=== PATIENT | male | born 1945 | race Caucasian/White ===

== ENCOUNTER 2023-01-28 09:46 | Outpatient (AMB) | payer MEDICARE, SELFPAY ==
--- NOTE | 2023-01-28 10:16 | MHC.PC.OV ---
Vital Signs 01/28/23 10:18 Height 5 ft 8 in Weight 221 lb BMI 33.6 BP 118/62 Blood Pressure Location Rt brachial Position Sitting Pulse 70 Pulse Source Pulse Oximeter Pulse Oximetry (%) 95 Oxygen Delivery Method Room Air Intake Visit Reasons: Est. Care/ Requesting PE Intake Note: Pt is here today as a new patient to est care/ PE Allergies Penicillins Allergy (Severe, Verified 01/28/23 10:58) Anaphylaxis metformin Adverse Reaction (Verified 01/28/23 10:52) Diarrhea Medication List - Last Reconciled 01/29/23 by Rosa Elena Brown MD allopurinol 100 mg PO DAILY aspirin (Adult Low Dose Aspirin) 81 mg PO DAILY atorvastatin 40 mg PO DAILY dapagliflozin propanediol (Farxiga) 10 mg PO DAILY levothyroxine (Synthroid) 150 mcg PO DAILY losartan-hydrochlorothiazide 100-25 mg 1 tab PO DAILY metoprolol succinate ER 25 mg PO DAILY [[employer] Krill oil PO] pioglitazone 30 mg PO DAILY potassium citrate ER PO sitagliptin phosphate (Januvia) 50 mg PO DAILY Tobacco use date assessed: 01/28/23 Fall risk assessment: No Falls in past year Last assessed Fall Risk: 01/28/23 Dental Screening Dental Screen Date: 01/28/23 Did you have a dental visit in the last 12 months?: Yes Did you have a dental problem in the last 6 months where you did not have access to dental care?: No Was dental information given to patient?: Patient has dentist HPI Est. 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 He had recent fasting labs done 01/14/2023 at [facility] which showed total cholesterol 106, triglycerides 217, HDL 23 and LDL 40, electrolytes and renal function done 12/24/2022 were within normal limits except for decreased GFR at 42, and normal vitamin-D level. Hemoglobin A1c today is 6.3%. He states that he has been feeling well overall with no complaints. [facility] Medical History (Updated 01/28/23 @ 11:14 by Rosa Elena Brown MD) Acquired hypothyroidism Aortic stenosis Chronic kidney disease, stage 3 Diabetic nephropathy Essential hypertension History of non-ST elevation myocardial infarction (NSTEMI) Hypercholesterolemia Kidney stone on right side Obstructive sleep apnea on CPAP Type 2 diabetes mellitus without complication, without long-term current use of insulin Surgical History (Updated 01/28/23 @ 10:57 by Rosa Elena Brown MD) S/P excision of lipoma Social History Housing: House Patient Tobacco Use Status: Former Tobacco user e-Cigarette/Vaping Use: Never Used service: Yes Current occupational status: employed Cognitive needs: No Hearing needs: Yes Vision needs: Yes Questionnaire PHQ-9 Over the last 2 weeks, how often have you been bothered by any of the following problems? 1. Little interest or pleasure in doing things: not at all 2. Feeling down, depressed, or hopeless: not at all 3. Trouble falling or staying asleep, or sleeping too much: not at all 4. Feeling tired or having little energy: not at all 5. Poor appetite or overeating: not at all 6. Feeling bad about yourself - or that you are a failure or have let yourself or your family down: not at all 7. Trouble concentrating on things, such as reading the newspaper or watching television: not at all 8. Moving or speaking so slowly that other people could have noticed. Or the opposite - being so fidgety or restless that you have been moving around a lot more than usual: not at all 9. Thoughts that you would be better off or of hurting yourself in some way: not at all Total score: 0 Depression Screening Interpretation: Negative 25047 - PHQ-9 Billing: Yes Source: Developed by Drs. Odell Hawkins, Pretty Mackenzie, Chris Bernal and colleagues, with an educational jp from [employer]. Thrive Questionnaire Date Thrive assessed: 01/28/23 I am a: Patient What is your living situation today?: I have a steady place to live Within the past 12 months, did the food you bought not last and you didn't have the money to get more?: Never true Within the past 12 months, did you worry whether your food would run out before you got money to buy more?: Never true Do you have trouble paying for medicines?: No Do you have trouble getting transportation to medical appointments?: No Do you have trouble paying your heating and electricity bill?: No Do you have trouble taking care of your child, family member or friend?: No Do you have trouble with day-to-day activities such as bathing, preparing meals, shopping, managing finances, etc.?: No Are you currently unemployed and looking for a job?: No Are you interested in more education?: No AUDIT C Alcohol Use Questionnaire (AUDIT-C) 1. How often do you have a drink containing alcohol?: Never Total Score: 0 KAY-7 AMB Questionnaire KAY-7 Date KAY - 7 assessed: 01/28/23 Feeling nervous, anxious, or on edge: 0 = Not at all Not being able to stop or control worryin = Not at all Worrying too much about different things: 0 = Not at all Trouble relaxin = Not at all Being so restless that it is hard to sit still: 0 = Not at all Becoming easily annoyed or irritable: 0 = Not at all Feeling afraid as if something awful might happen: 0 = Not at all Total KAY-7 score (0-4 normal; 5-9 mild; 10-14 moderate; 15-21 severe): 0 Source: Developed by Drs. Odell Hawkins, Pretty Mackenzie, Chris Bernal and colleagues, with an educational jp from [employer]. KAY-7 Assessment Billing KAY-7 Assessment Tool: KAY-7 Assessment 40368 Review of Systems Const Reports no additional complaints Eyes Details: Sees Dr. Leslie for his diabetes retinopathy exam, up-to-date with his yearly exam, no retinopathy seen per patient Reports no additional complaints ENT Details: Gets dental prophylaxis every 6 months in [place] Reports no additional complaints Card Denies chest pain, Denies chest pain with activity, Denies rapid heart rate, Denies irregular heart rhythm, Denies lightheadedness and Denies dyspnea Resp Denies cough and Denies dyspnea GI Reports no additional complaints Reports no additional complaints Musc Reports no additional complaints Skin/Breast Denies lesions and Denies rash Neuro Reports no additional complaints Psych Reports no additional complaints Endo Reports no additional complaints Andrew/Lymph Reports no additional complaints Aller/Immun Reports no additional complaints Physical exam (Primary Care) Vital Signs: Last Vital Signs Pulse 70 01/28/23 10:18 BP 118/62 01/28/23 10:18 Pulse Ox 95 01/28/23 10:18 Oxygen Delivery Method Room Air 01/28/23 10:18 BMI result Body Mass Index 33.6 BMI Assessment/Plan discussion: High BMI High, discussed plan: weight reduction, dietary and physical activity Tobacco/Smoking Status: Tobacco use Status Tobacco use date assessed 01/28/23 01/28/23 10:27 Patient Tobacco Use Status Former Tobacco user 01/28/23 10:27 e-Cigarette/Vaping Use Never Used 01/28/23 10:27 PHQ-9: PHQ-9 Score PHQ-9: Total score 0 01/28/23 11:25 Depression Screening Interpretation: Negative Thrive Assessment: Date of Thrive Assessment Date Thrive assessed 01/28/23 01/28/23 11:04 Const General: no acute distress, alert and Physically active Nutritional Appearance: obese Orientation/consciousness: patient oriented x3 Limitations: no limitations HENMT Head: Yes normocephalic Ears: hearing grossly normal bilaterally, external ears normal, TM's normal bilaterally and EAC's normal General nose exam: Normal external nose present Face and sinus: Yes face symmetric Mouth: Normal oral and palatal mucosa present, oropharynx normal and moist mucous membranes Throat: Yes posterior oropharynx normal Eyes General: appearance normal, both eyes and all related structures Periorbital: periorbital findings normal Eyelids: Yes eyelids normal Conjunctivae: conjunctivae normal Sclerae: sclerae normal Pupils: Equal, round and reactive pupils present EOM: EOMs intact bilaterally Direct Ophthalmoscopy: normal light reflex Neck Neck: Yes full ROM, Yes no lymphadenopathy and Yes supple Thyroid: Thyroid normal Chest Chest palpation & inspection: normal inspection of the chest and normal palpation of entire chest wall Resp Effort & Inspection: normal respiratory effort and able to speak in complete sentences Auscultation: clear to auscultation bilaterally Cardio Rate: regular rate Rhythm: regular rhythm Heart sounds: S1 normal heart sound present and S2 normal heart sound present Bruits: no abdominal aortic bruits GI Inspection: Yes obesity Palpation (GI): No Abdominal aortic bruit present, Soft to palpation, nontender, no guarding and no masses Auscultation: normal bowel sounds General: Yes no CVA tenderness Male General Exam: Yes normal external exam Back/Spine/Pelvis Back: no CVA tenderness and No back tenderness Skin General skin exam: no rashes or lesions noted Nails: normal Neuro General: patient oriented x3, gait normal, moves all extremities, Normal light touch and pain sensation, no focal motor deficits, CN's II-XI intact bilaterally and normal sensation to monofilament Cranial nerves: Yes CN's II-XII intact bilaterally and Yes Equal, round and reactive pupils present Cognition (Neuro): normal cognition Gait exam (Neuro): Normal gait present Psych Appearance: grossly normal and well kempt Mental Status: mental status grossly normal Speech and movement: Normal speech and movement present Affect: normal affect Attitude: cooperative Thought process: Normal thought process present Thought content: Normal thought content present Results AMB Hemoglobin A1c AMB Hemoglobin A1c 6.3 % Last Edit by Love Mosqueda CMA on 01/28/23 11:12 Immunizations pneumoc 20-lina conj-dip cr(PF) Performing Provider: Rosa Elena Brown MD Administered by: Love Mosqueda CMA on 01/28/23 11:25 Dose Route Admin Location Lot Number Expiration Date [facility] Preprint Analyst 0.5 mL IM Right Deltoid [id number] 04/02/24 [id number] [facility] VIS Given Date VIS Provided VIS Publication Date 01/28/23 Single Vaccine 21 Eligibility Eligibility Date Funding Source Not [facility] Eligible 01/28/23 Private Results Reviewed Results Reviewed: Laboratory Last Values Hgb A1c (Clinic) 6.3 % (4.0-6.0) H 01/28/23 10:52 Assessment and Plan Assessment & Plan (1) Diabetic nephropathy: Code(s): E11.21 - Type 2 diabetes mellitus with diabetic nephropathy Plan: Continue with current medication and good diabetes control (2) Obstructive sleep apnea on CPAP: Code(s): G47.33 - Obstructive sleep apnea (adult) (pediatric) Plan: Continue CPAP, weight reduction again strongly advised (3) Essential hypertension: Code(s): I10 - Essential (primary) hypertension Plan: Blood pressure at goal of less than 130/80. Continue with current medication. Reinforced importance of following a low sodium diet, getting regular exercise, and lowering stress levels. (4) Hypercholesterolemia: Code(s): E78.00 - Pure hypercholesterolemia, unspecified Plan: Reviewed recent fasting lipid profile with patient with levels within normal limits . Continue with atorvastatin 40 mg daily and Krill oil , in addition to adherence to low-cholesterol diet and regular exercise, at least 30 minutes 3 to 4 times a week. Advised patient to make healthy food choices, eat more fruits, vegetables, whole grains, wild caught fish and low-fat dairy. Limit amount of meat and fried or fatty food products, as well as processed foods and fast foods. Follow-up scheduled with repeat fasting lipid panel in 3 months. (5) History of non-ST elevation myocardial infarction (NSTEMI): Comment: Goes to [facility] cardiology in [place] Code(s): I25.2 - Old myocardial infarction Plan: Continue aspirin 81 mg daily, and stressed importance of good control of diabetes, cholesterol and and blood pressure (6) Chronic kidney disease, stage 3: Comment: sees Dr Rashid loya- [facility] [place] Code(s): N18.30 - Chronic kidney disease, stage 3 unspecified (7) Aortic stenosis: Comment: Has echocardiogram 01/26/2020-mild aortic stenosis seen, ordered by Dr. Jeronimo Ibrahim Code(s): I35.0 - Nonrheumatic aortic (valve) stenosis (8) Acquired hypothyroidism: Code(s): E03.9 - Hypothyroidism, unspecified Plan: Continue with levothyroxine the same dose, will check TSH and free T4 in 3 month (9) Type 2 diabetes mellitus without complication, without long-term current use of insulin: Code(s): E11.9 - Type 2 diabetes mellitus without complications Plan: hemoglobin A1c stable and at goal at 6.3%. Continue with current medication and continue to check fasting blood sugar at home, maintain log and bring to next appointment for review. Reinforced diabetic diet and regular exercise with patient. Counseled regarding importance of yearly diabetes retinopathy screening. Patient advised to inspect feet daily, for any signs of injury, callus or infection. Compliance with diet and regular exercise again stressed. Blood pressure goal is less than 130/80, goal LDL is less than 100 and goal hemoglobin A1c is less than 7% follow-up appointment made in-3--months, after fasting labs done. (10) Annual visit for general adult medical examination with abnormal findings: Code(s): Z00.01 - Encounter for general adult medical examination with abnormal findings Plan: Reviewed recent fasting labs done at [facility].. Continue with regular dental visit every 6 months and regular eye exams, yearly with Dr. Leslie Take adequate calcium in diet and vitamin-D 3 at 2000 IU per cap once a day, in addition to weight-bearing exercises to help maintain good muscle tone and weight control. Instructed to do self-testicular exam to check for any mass. Up-to-date with his vaccines, reminded to get his COVID booster and yearly flu vaccine,, Prevnar 20 given today. Orders: Orders Alanine Aminotransferase 04/08/23 E11.21 - Type 2 diabetes mellitus with diabetic nephropathy, E11.9 - Type 2 diabetes mellitus without complications, E78.00 - Pure hypercholesterolemia, unspecified, I10 - Essential (primary) hypertension, I25.2 - Old myocardial infarction Aspartate Amino Transferase 04/08/23 E11.21 - Type 2 diabetes mellitus with diabetic nephropathy, E11.9 - Type 2 diabetes mellitus without complications, E78.00 - Pure hypercholesterolemia, unspecified, I10 - Essential (primary) hypertension, I25.2 - Old myocardial infarction Hemoglobin A1c 04/08/23 E11.21 - Type 2 diabetes mellitus with diabetic nephropathy, E11.9 - Type 2 diabetes mellitus without complications, E78.00 - Pure hypercholesterolemia, unspecified, I10 - Essential (primary) hypertension, I25.2 - Old myocardial infarction Lipid Panel 04/08/23 E11.21 - Type 2 diabetes mellitus with diabetic nephropathy, E11.9 - Type 2 diabetes mellitus without complications, E78.00 - Pure hypercholesterolemia, unspecified, I10 - Essential (primary) hypertension, I25.2 - Old myocardial infarction Free T4 (Free Thyroxine) 04/08/23 E03.9 - Hypothyroidism, unspecified Thyroid Stimulating Hormone 04/08/23 E03.9 - Hypothyroidism, unspecified Pneumococcal 20 Immunization 01/28/23 Z23 - Encounter for immunization AMB Hemoglobin A1c 01/28/23 Z13.9 - Encounter for screening, unspecified AMB Hemoglobin A1c 01/28/23 E11.21 - Type 2 diabetes mellitus with diabetic nephropathy, E11.9 - Type 2 diabetes mellitus without complications Coding Level of Care Code New Pt Prev Care >65yr (16834) Diagnoses Diabetic nephropathy E11.21 Obstructive sleep apnea on CPAP G47.33 Essential hypertension I10 Hypercholesterolemia E78.00 History of non-ST elevation myocardial infarction (NSTEMI) I25.2 Chronic kidney disease, stage 3 N18.30 Aortic stenosis I35.0 Acquired hypothyroidism E03.9 Type 2 diabetes mellitus without complication, without long-term current use of insulin E11.9 Annual visit for general adult medical examination with abnormal findings Z00.01 Additional Codes KAY-7 Assessment Billing - KAY-7 Assessment Tool: KAY-7 Assessment [id number] ([id number])
[2023-01-28 10:18] VITALS: BP 118/62; PULSE 70; O2SAT 95; BMI 33.6
== END 2023-01-28 11:52 | disposition home or self-care (01) ==
PROVIDERS: Visit Provider Internal Medicine
DX: Z23 Encounter for immunization (principal); E11.22 Type 2 diabetes mellitus with diabetic chronic kidney disease
CPT/HCPCS: 83036; 90471; 90677; 99387

== ENCOUNTER 2023-04-30 08:42 | Outpatient (REF) | payer MEDICARE, SELFPAY ==
[2023-04-30 11:28] LABS: Estimated Average Glucose 143 mg/dL; Hemoglobin A1c % 6.6 % (<6.0)
[2023-04-30 12:09] LABS: Free T4 (Free Thyroxine) 1.08 ng/dL (0.71-1.85)
[2023-04-30 12:11] LABS: Alanine Aminotransferase 16 U/L (0-40); Aspartate Amino Transferase 21 U/L (5-37); Cholesterol 109 mg/dL (<200); HDL Cholesterol 21 mg/dL (>40); LDL Cholesterol Calculated 45 mg/dL (<100); Triglycerides 216 mg/dL (<150)
== END 2023-04-30 08:43 | disposition home or self-care (01) ==
LOC: HO.HMGCLDS 08:42
PROVIDERS: PCP Internal Medicine; Visit Provider Internal Medicine
DX: E11.21 Type 2 diabetes mellitus with diabetic nephropathy (principal); E78.00 Pure hypercholesterolemia, unspecified; I10 Essential (primary) hypertension; I25.2 Old myocardial infarction; E11.9 Type 2 diabetes mellitus without complications; E03.9 Hypothyroidism, unspecified
CPT/HCPCS: 36415; 80061; 83036; 84439; 84443; 84450; 84460

== ENCOUNTER 2023-05-01 11:37 | Outpatient (AMB) | payer MEDICARE, SELFPAY ==
[2023-05-01 12:26] VITALS: BP 110/62; PULSE 69; O2SAT 95; BMI 33.8
--- NOTE | 2023-05-01 12:26 | MHC.PC.OV ---
Vital Signs 05/01/23 12:26 Height 5 ft 8 in Weight 222 lb BMI 33.8 BP 110/62 Blood Pressure Location Rt brachial Position Sitting Pulse 69 Pulse Source Pulse Oximeter Pulse Oximetry (%) 95 Oxygen Delivery Method Room Air Intake Visit Reasons: 3 Month follow up Intake Note: pt is here to follow up for his lab results Allergies Penicillins Allergy (Severe, Verified 05/01/23 12:31) Anaphylaxis metformin Adverse Reaction (Verified 05/01/23 12:31) Diarrhea Medication List - Last Reconciled 05/01/23 by Rosa Elena Brown MD allopurinol 100 mg PO DAILY aspirin (Adult Low Dose Aspirin) 81 mg PO DAILY atorvastatin 40 mg PO DAILY dapagliflozin propanediol (Farxiga) 10 mg PO DAILY levothyroxine (Synthroid) 150 mcg PO DAILY losartan-hydrochlorothiazide 100-25 mg 1 tab PO DAILY metoprolol succinate ER 25 mg PO DAILY [[employer] Krill oil PO] pioglitazone 30 mg PO DAILY potassium citrate ER PO sitagliptin phosphate (Januvia) 50 mg PO DAILY Tobacco use date assessed: 05/01/23 Fall risk assessment: No Falls in past year Last assessed Fall Risk: 05/01/23 Dental Screening Dental Screen Date: 05/01/23 Did you have a dental visit in the last 12 months?: Yes Did you have a dental problem in the last 6 months where you did not have access to dental care?: No Was dental information given to patient?: Patient has dentist HPI 3 Month follow up HPI Details 78-year-old male with diabetes mellitus with nephropathy with chronic kidney disease stage 3, history of obstructive sleep apnea on CPAP, hypertension and hypercholesterolemia, hypothyroidism, here today for his follow-up. He has been compliant with taking his medications and has been feeling well with no complaints at present time. [facility] Medical History Kidney stone on right side Diabetic nephropathy Obstructive sleep apnea on CPAP Essential hypertension Hypercholesterolemia History of non-ST elevation myocardial infarction (NSTEMI) Chronic kidney disease, stage 3 Aortic stenosis Acquired hypothyroidism Type 2 diabetes mellitus without complication, without long-term current use of insulin Surgical History S/P excision of lipoma Social History Housing: House Patient Tobacco Use Status: Former Tobacco user e-Cigarette/Vaping Use: Never Used service: Yes Current occupational status: employed Cognitive needs: No Hearing needs: Yes Vision needs: Yes Questionnaire PHQ-9 Over the last 2 weeks, how often have you been bothered by any of the following problems? 1. Little interest or pleasure in doing things: not at all 2. Feeling down, depressed, or hopeless: not at all 3. Trouble falling or staying asleep, or sleeping too much: not at all 4. Feeling tired or having little energy: not at all 5. Poor appetite or overeating: not at all 6. Feeling bad about yourself - or that you are a failure or have let yourself or your family down: not at all 7. Trouble concentrating on things, such as reading the newspaper or watching television: not at all 8. Moving or speaking so slowly that other people could have noticed. Or the opposite - being so fidgety or restless that you have been moving around a lot more than usual: not at all 9. Thoughts that you would be better off or of hurting yourself in some way: not at all Total score: 0 Depression Screening Interpretation: Negative Depression Screening Done: Yes 18072 - PHQ-9 Billing: Yes Source: Developed by Drs. Odell Hawkins, Pretty Mackenzie, Chris Bernal and colleagues, with an educational jp from [employer]. Thrive Questionnaire Date Thrive assessed: 01/28/23 AUDIT C Alcohol Use Questionnaire (AUDIT-C) 1. How often do you have a drink containing alcohol?: Never 2. How many drinks containing alcohol do you have on a typical day when you are drinking?: 1 or 2 3. How often do you have six or more drinks on one occasion?: Never Total Score: 0 KAY-7 AMB Questionnaire KAY-7 Date KAY - 7 assessed: 05/01/23 Feeling nervous, anxious, or on edge: 0 = Not at all Not being able to stop or control worryin = Not at all Worrying too much about different things: 0 = Not at all Trouble relaxin = Not at all Being so restless that it is hard to sit still: 0 = Not at all Becoming easily annoyed or irritable: 0 = Not at all Feeling afraid as if something awful might happen: 0 = Not at all Total KAY-7 score (0-4 normal; 5-9 mild; 10-14 moderate; 15-21 severe): 0 Source: Developed by Drs. Odell Hawkins, Pretty Mackenzie, Chris Bernal and colleagues, with an educational jp from [employer]. KAY-7 Assessment Billing KAY-7 Assessment Tool: KAY-7 Assessment 20713 Review of Systems Const Reports no additional complaints Eyes Details: Sees Dr. Leslie for his diabetes retinopathy exam, up-to-date with his yearly exam, no retinopathy seen per patient Reports no additional complaints ENT Details: Gets dental prophylaxis [place] 6 [place] Reports no additional complaints Card Denies chest pain, Denies chest pain with activity, Denies rapid heart rate, Denies irregular heart rhythm, Denies lightheadedness and Denies dyspnea Resp Denies cough and Denies dyspnea GI Reports no additional complaints Reports no additional complaints Musc Reports no additional complaints Skin/Breast Denies lesions and Denies rash Neuro Reports no additional complaints Psych Reports no additional complaints Endo Reports no additional complaints Andrew/Lymph Reports no additional complaints Aller/Immun Reports no additional complaints Physical exam (Primary Care) Vital Signs: Last Vital Signs Pulse 69 05/01/23 12:26 BP 110/62 05/01/23 12:26 Pulse Ox 95 05/01/23 12:26 Oxygen Delivery Method Room Air 05/01/23 12:26 BMI result Body Mass Index 33.8 BMI Assessment/Plan discussion: High BMI High, discussed plan: weight reduction, dietary and physical activity Tobacco/Smoking Status: Tobacco use Status Tobacco use date assessed 05/01/23 05/01/23 12:31 Patient Tobacco Use Status Former Tobacco user 05/01/23 12:26 e-Cigarette/Vaping Use Never Used 05/01/23 12:26 PHQ-9: PHQ-9 Score PHQ-9: Total score 0 05/02/23 02:05 Depression Screening Interpretation: Negative Thrive Assessment: Date of Thrive Assessment Date Thrive assessed 01/28/23 05/01/23 12:26 Const General: no acute distress and alert Nutritional Appearance: obese Orientation/consciousness: patient oriented x3 HENMT Head: Yes normocephalic Ears: hearing grossly normal bilaterally and external ears normal General nose exam: Normal external nose present Face and sinus: Yes face symmetric Mouth: Normal oral and palatal mucosa present, oropharynx normal and moist mucous membranes Eyes General: appearance normal, both eyes and all related structures Neck Neck: Yes full ROM, Yes no lymphadenopathy and Yes supple Thyroid: Thyroid normal Resp Effort & Inspection: normal respiratory effort and able to speak in complete sentences Auscultation: clear to auscultation bilaterally Cardio Rate: regular rate Rhythm: regular rhythm Heart sounds: S1 normal heart sound present and S2 normal heart sound present GI Inspection: Yes obesity Palpation (GI): Soft to palpation, nontender, no guarding and no masses Auscultation: normal bowel sounds Back/Spine/Pelvis Back: No back tenderness Skin General skin exam: no rashes or lesions noted Nails: normal Neuro General: patient oriented x3, gait normal, moves all extremities, Normal light touch and pain sensation, no focal motor deficits, CN's II-XI intact bilaterally and normal sensation to monofilament Cranial nerves: Yes CN's II-XII intact bilaterally Cognition (Neuro): normal cognition Gait exam (Neuro): Normal gait present Extrem General: Yes full ROM, Yes no joint enlargement, Yes no clubbing, cyanosis or edema, Yes no calf tenderness and Yes normal gait Results Reviewed Results Reviewed: ENTERED: 04/30/[address]: ORDERED: Hgb A1c Test Result Flag Reference Site A1c % 6.6 H <6.0 % Hemoglobin A1C Reference Range Adults: 4.8 - 6.0 % Non diabetic: < 6.0 % Goal: < 7.0 % Additional Action Suggested: > 8.0 % Note: Hemoglobin A1c results are invalid for patients with abnormal amounts of HbF. Blood transfusions may impact the HbA1c concentration in the patient sample. Est. Avg. Gluc 143 mg/dL eAG = Estimated average glucose which is %A1C expressed as average glucose, using the formula of the [id number] Average Glucose study (ADAG), Diabetes Care, Vol.31,#8, 2007 ENTERED: 04/30/[address]: ORDERED: AST, ALT, Lipid Panel, Free T4, TSH Test Result Flag Reference Site AST (GOT) 21 5-37 U/L ALT (GPT) 16 0-40 U/L Triglyceride 216 H <150 mg/dL Desirable Triglyceride: less than 150 mg/dL Borderline High Triglyceride 150-199 mg/dL High Triglyceride: 200-499 mg/dL Very High Triglyceride: greater than or equal to 5OO mg/dL Cholesterol 109 <200 mg/dL Desirable Cholesterol: less than 200 mg/dL Borderline High Cholesterol: 200-239 mg/dL High Cholesterol: greater than 239 mg/dL LDL Calculated 45 <100 mg/dL Desirable LDL: less than 100 mg/dL Near Optimal/Above Optimal LDL: 110-129 mg/dL Borderline High LDL: 130-159 mg/dL High LDL: 160-189 mg/dL Very High LDL: greater than or equal to 190 mg/dL HDL 21 L >40 mg/dL Desirable HDL: greater than 40 mg/dL Note: This HDL assay may give artificially low results in patients with liver disease. Free T4 1.08 0.71-1.85 ng/dL TSH 3rd Gen. 0.80 0.32-4.0 uIU/mL TSH 3rd Generation ([facility]) Assessment and Plan Assessment & Plan (1) Acquired hypothyroidism: Code(s): E03.9 - Hypothyroidism, unspecified Plan: Recent thyroid levels are showing results within normal limits, continue with current dose of levothyroxine 150 mcg daily (2) Type 2 diabetes mellitus without complication, without long-term current use of insulin: Code(s): E11.9 - Type 2 diabetes mellitus without complications Plan: Diabetes mellitus stable and controlled with hemoglobin A1c at 6.6%. Continue Farxiga 10 mg daily in a.m. and pioglitazone 30 mg daily as well as sitagliptin 50 mg once a day. (3) Chronic kidney disease, stage 3: Comment: sees Dr Rashid loya- [facility] [place] Code(s): N18.30 - Chronic kidney disease, stage 3 unspecified Plan: Followed by Nephrology (4) Hypercholesterolemia: Code(s): E78.00 - Pure hypercholesterolemia, unspecified Plan: Reviewed recent fasting lipid profile with patient with levels within normal limits . Continue with atorvastatin 40 mg daily , in addition to adherence to low-cholesterol diet and regular exercise, at least 30 minutes 3 to 4 times a week. Advised patient to make healthy food choices, eat more fruits, vegetables, whole grains, wild caught fish and low-fat dairy. Limit amount of meat and fried or fatty food products, as well as processed foods and fast foods. Follow-up scheduled with repeat fasting lipid panel in months. (5) Essential hypertension: Code(s): I10 - Essential (primary) hypertension Plan: Blood pressure at goal of less than 130/80. Continue with current dose of losartan-HCTZ, metoprolol succinate ER. Reinforced importance of following a low sodium diet, getting regular exercise, and lowering stress levels. Orders: Orders Uric Acid 10/02/23 E03.9 - Hypothyroidism, unspecified, E11.9 - Type 2 diabetes mellitus without complications, N18.30 - Chronic kidney disease, stage 3 unspecified, E78.00 - Pure hypercholesterolemia, unspecified, I10 - Essential (primary) hypertension, E11.21 - Type 2 diabetes mellitus with diabetic nephropathy, I25.2 - Old myocardial infarction, E79.0 - 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 signs of inflammatory arthritis and tophaceous disease Vitamin D 25-OH Total 10/02/23 E03.9 - Hypothyroidism, unspecified, E11.9 - Type 2 diabetes mellitus without complications, N18.30 - Chronic kidney disease, stage 3 unspecified, E78.00 - Pure hypercholesterolemia, unspecified, I10 - Essential (primary) hypertension, E11.21 - Type 2 diabetes mellitus with diabetic nephropathy, I25.2 - Old myocardial infarction, E79.0 - 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 signs of inflammatory arthritis and tophaceous disease Thyroid Stimulating Hormone 10/02/23 E03.9 - Hypothyroidism, unspecified, E11.9 - Type 2 diabetes mellitus without complications, N18.30 - Chronic kidney disease, stage 3 unspecified, E78.00 - Pure hypercholesterolemia, unspecified, I10 - Essential (primary) hypertension, E11.21 - Type 2 diabetes mellitus with diabetic nephropathy, I25.2 - Old myocardial infarction, E79.0 - 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 signs of inflammatory arthritis and tophaceous disease Free T4 (Free Thyroxine) 10/02/23 E03.9 - Hypothyroidism, unspecified, E11.9 - Type 2 diabetes mellitus without complications, N18.30 - Chronic kidney disease, stage 3 unspecified, E78.00 - Pure hypercholesterolemia, unspecified, I10 - Essential (primary) hypertension, E11.21 - Type 2 diabetes mellitus with diabetic nephropathy, I25.2 - Old myocardial infarction, E79.0 - 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 signs of inflammatory arthritis and tophaceous disease Hemoglobin A1c 10/02/23 E03.9 - Hypothyroidism, unspecified, E11.9 - Type 2 diabetes mellitus without complications, N18.30 - Chronic kidney disease, stage 3 unspecified, E78.00 - Pure hypercholesterolemia, unspecified, I10 - Essential (primary) hypertension, E11.21 - Type 2 diabetes mellitus with diabetic nephropathy, I25.2 - Old myocardial infarction, E79.0 - 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 signs of inflammatory arthritis and tophaceous disease Microalbumin, Random (w Creat) 10/02/23 E03.9 - Hypothyroidism, unspecified, E11.9 - Type 2 diabetes mellitus without complications, N18.30 - Chronic kidney disease, stage 3 unspecified, E78.00 - Pure hypercholesterolemia, unspecified, I10 - Essential (primary) hypertension, E11.21 - Type 2 diabetes mellitus with diabetic nephropathy, I25.2 - Old myocardial infarction, E79.0 - 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 signs of inflammatory arthritis and tophaceous disease Lipid Panel 10/02/23 E03.9 - Hypothyroidism, unspecified, E11.9 - Type 2 diabetes mellitus without complications, N18.30 - Chronic kidney disease, stage 3 unspecified, E78.00 - Pure hypercholesterolemia, unspecified, I10 - Essential (primary) hypertension, E11.21 - Type 2 diabetes mellitus with diabetic nephropathy, I25.2 - Old myocardial infarction, E79.0 - 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 signs of inflammatory arthritis and tophaceous disease Comprehensive [place]. Panel Fast 10/02/23 E03.9 - Hypothyroidism, unspecified, E11.9 - Type 2 diabetes mellitus without complications, N18.30 - Chronic kidney disease, stage 3 unspecified, E78.00 - Pure hypercholesterolemia, unspecified, I10 - Essential (primary) hypertension, E11.21 - Type 2 diabetes mellitus with diabetic nephropathy, I25.2 - Old myocardial infarction, E79.0 - 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 signs of inflammatory arthritis and tophaceous disease Coding Level of Care Code Est Pt Level 4 (12589) Diagnoses Acquired hypothyroidism E03.9 Type 2 diabetes mellitus without complication, without long-term current use of insulin E11.9 Chronic kidney disease, stage 3 N18.30 Hypercholesterolemia E78.00 Essential hypertension I10 Additional Codes KAY-7 Assessment Billing - KAY-7 Assessment Tool: KAY-7 Assessment 97856 ([id number])
== END 2023-05-01 12:44 | disposition home or self-care (01) ==
PROVIDERS: PCP Internal Medicine; Visit Provider Internal Medicine
DX: I12.9 Hypertensive chronic kidney disease with stage 1 through stage 4 chronic kidney disease, or unspecified chronic kidney disease (principal); E11.22 Type 2 diabetes mellitus with diabetic chronic kidney disease; N18.30 Chronic kidney disease, stage 3 unspecified; E03.9 Hypothyroidism, unspecified; E78.00 Pure hypercholesterolemia, unspecified
CPT/HCPCS: 99214

== ENCOUNTER 2023-07-27 10:25 | Outpatient (REF) | payer MEDICARE, SELFPAY ==
[2023-07-27 11:21] LABS: Estimated Average Glucose 140 mg/dL; Hemoglobin A1c % 6.5 % (<6.0)
[2023-07-27 11:41] LABS: Creatinine Urine 74.23 mg/dL; Microalbum/Creatinine Ratio Ur 82.1 ug/mg cr (<30)
[2023-07-27 11:54] LABS: Alanine Aminotransferase 17 U/L (0-40); Albumin Level 4.1 g/dL (3.5-5.0); Alkaline Phosphatase 127 U/L (39-117); Anion Gap 14 (12-20); Aspartate Amino Transferase 19 U/L (5-37); Bilirubin Total 0.7 mg/dL (0.0-1.0); Blood Urea Nitrogen 37 mg/dL (9-16); Carbon Dioxide 26 mmol/L (22-29); Chloride 104 mmol/L (96-108); Cholesterol 109 mg/dL (<200); Estimated Glomerular Filt Rate 29; Glucose Fasting 160 mg/dL (60-99); HDL Cholesterol 18 mg/dL (>40); LDL Cholesterol Calculated 52 mg/dL (<100); Potassium 4.9 mmol/L (3.3-5.1); Sodium 139 mmol/L (135-145); Total Protein 7.1 g/dL (6.5-8.0); Triglycerides 196 mg/dL (<150); Uric Acid 6.8 mg/dL (3.4-7.0)
[2023-07-27 12:09] LABS: Free T4 (Free Thyroxine) 1.01 ng/dL (0.71-1.85); Thyroid Stimulating Hormone 1.99 uIU/mL (0.32-4.0); Vitamin D 25-OH Total 30.6 ng/mL (>30)
== END 2023-07-27 10:26 | disposition home or self-care (01) ==
LOC: HO.HMGCLDS 10:25
PROVIDERS: PCP Internal Medicine; Visit Provider Internal Medicine
DX: I12.9 Hypertensive chronic kidney disease with stage 1 through stage 4 chronic kidney disease, or unspecified chronic kidney disease (principal); E11.22 Type 2 diabetes mellitus with diabetic chronic kidney disease; N18.30 Chronic kidney disease, stage 3 unspecified; E11.21 Type 2 diabetes mellitus with diabetic nephropathy; E79.0 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 signs of inflammatory arthritis and tophaceous disease; I25.2 Old myocardial infarction; E78.00 Pure hypercholesterolemia, unspecified; E03.9 Hypothyroidism, unspecified
CPT/HCPCS: 36415; 80053; 80061; 82043; 82306; 82570; 83036; 84439; 84443; 84550

== ENCOUNTER 2023-10-30 11:21 | Outpatient (AMB) | payer MEDICARE, SELFPAY ==
[2023-10-30 11:30] VITALS: BP 100/52; PULSE 69; O2SAT 96; BMI 32.4
--- NOTE | 2023-10-30 11:30 | MHC.PC.OV ---
Vital Signs 10/30/23 11:30 Height 5 ft 8 in Weight 213 lb BMI 32.4 BP 100/52 L Blood Pressure Location Lt brachial Position Sitting Pulse 69 Pulse Source Pulse Oximeter Pulse Oximetry (%) 96 Oxygen Delivery Method Room Air Intake Visit Reasons: 6 month follow up Intake Note: Pt is here today for his 6mo. f/u Allergies Penicillins Allergy (Severe, Verified 11/27/23 02:17) Anaphylaxis metformin Adverse Reaction (Verified 11/27/23 02:17) Diarrhea Medication List - Last Reconciled 11/27/23 by Rosa Elena Brown MD allopurinol 100 mg PO DAILY aspirin (Adult Low Dose Aspirin) 81 mg PO DAILY atorvastatin 40 mg PO DAILY dapagliflozin propanediol (Farxiga) 10 mg PO DAILY levothyroxine (Synthroid) 150 mcg PO DAILY losartan-hydrochlorothiazide 100-25 mg 1 tab PO DAILY metoprolol succinate ER 25 mg PO DAILY [Nature's bounty Krill oil PO] pioglitazone 30 mg PO DAILY potassium citrate ER PO sitagliptin phosphate (Januvia) 50 mg PO DAILY Tobacco use date assessed: 10/30/23 Fall risk assessment: No Falls in past year Last assessed Fall Risk: 10/30/23 Dental Screening Dental Screen Date: 10/30/23 Did you have a dental visit in the last 12 months?: Yes Did you have a dental problem in the last 6 months where you did not have access to dental care?: No Was dental information given to patient?: Patient has dentist HPI 6 month follow up HPI Details 78 year-old male , with diabetes mellitus with chronic kidney disease stage 3, history of obstructive sleep apnea on CPAP, hypertension and hypercholesterolemia, hypothyroidism, here today for his follow-up. He has been feeling well with no complaints at present time, compliant with taking his medications. [facility] Medical History Kidney stone on right side Diabetic nephropathy Obstructive sleep apnea on CPAP Essential hypertension Hypercholesterolemia History of non-ST elevation myocardial infarction (NSTEMI) Chronic kidney disease, stage 3 Aortic stenosis Acquired hypothyroidism Type 2 diabetes mellitus without complication, without long-term current use of insulin Surgical History S/P excision of lipoma Social History Housing: House Patient Tobacco Use Status: Former Tobacco user e-Cigarette/Vaping Use: Never Used service: Yes Current occupational status: employed Cognitive needs: No Hearing needs: Yes Vision needs: Yes Questionnaire PHQ-9 Over the last 2 weeks, how often have you been bothered by any of the following problems? 1. Little interest or pleasure in doing things: not at all 2. Feeling down, depressed, or hopeless: not at all 3. Trouble falling or staying asleep, or sleeping too much: not at all 4. Feeling tired or having little energy: not at all 5. Poor appetite or overeating: not at all 6. Feeling bad about yourself - or that you are a failure or have let yourself or your family down: not at all 7. Trouble concentrating on things, such as reading the newspaper or watching television: not at all 8. Moving or speaking so slowly that other people could have noticed. Or the opposite - being so fidgety or restless that you have been moving around a lot more than usual: not at all 9. Thoughts that you would be better off or of hurting yourself in some way: not at all Total score: 0 Depression Screening Interpretation: Negative Depression Screening Done: Yes 00617 - PHQ-9 Billing: Yes Source: Developed by Drs. Odell Hawkins, Pretty Mackenzie, Chris Bernal and colleagues, with an educational jp from [employer]. Thrive Questionnaire Date Thrive assessed: 10/30/23 I am a: Patient What is your living situation today?: I have a steady place to live Within the past 12 months, did the food you bought not last and you didn't have the money to get more?: Never true Within the past 12 months, did you worry whether your food would run out before you got money to buy more?: Never true Do you have trouble paying for medicines?: No Do you have trouble getting transportation to medical appointments?: No Do you have trouble paying your heating and electricity bill?: No Do you have trouble taking care of your child, family member or friend?: No Do you have trouble with day-to-day activities such as bathing, preparing meals, shopping, managing finances, etc.?: No Are you currently unemployed and looking for a job?: No Are you interested in more education?: No THRIVE Score: 0 AUDIT C Alcohol Use Questionnaire (AUDIT-C) 1. How often do you have a drink containing alcohol?: Never 2. How many drinks containing alcohol do you have on a typical day when you are drinking?: 1 or 2 3. How often do you have six or more drinks on one occasion?: Never Total Score: 0 KAY-7 AMB Questionnaire KAY-7 Date KAY - 7 assessed: 10/30/23 Feeling nervous, anxious, or on edge: 0 = Not at all Not being able to stop or control worryin = Not at all Worrying too much about different things: 0 = Not at all Trouble relaxin = Not at all Being so restless that it is hard to sit still: 0 = Not at all Becoming easily annoyed or irritable: 0 = Not at all Feeling afraid as if something awful might happen: 0 = Not at all Total KAY-7 score (0-4 normal; 5-9 mild; 10-14 moderate; 15-21 severe): 0 Source: Developed by Drs. Odell Hawkins, Pretty Mackenzie, Chris Bernal and colleagues, with an educational jp from [employer]. KAY-7 Assessment Billing KAY-7 Assessment Tool: KAY-7 Assessment 18607 Review of Systems Const Reports no additional complaints Eyes Details: Sees Dr. Leslie for his diabetes retinopathy exam, up-to-date with his yearly exam, no retinopathy seen per patient Reports no additional complaints ENT Details: Gets dental prophylaxis every 6 months in [place] [facility] Reports no additional complaints Card Denies chest pain, Denies chest pain with activity, Denies rapid heart rate, Denies irregular heart rhythm, Denies lightheadedness and Denies dyspnea Resp Denies cough and Denies dyspnea GI Reports no additional complaints Reports no additional complaints Musc Reports no additional complaints Skin/Breast Denies lesions and Denies rash Neuro Reports no additional complaints Psych Reports no additional complaints Endo Reports no additional complaints Andrew/Lymph Reports no additional complaints Aller/Immun Reports no additional complaints Physical exam (Primary Care) Vital Signs: Last Vital Signs Pulse 69 10/30/23 11:30 BP 100/52 L 10/30/23 11:30 Pulse Ox 96 10/30/23 11:30 Oxygen Delivery Method Room Air 10/30/23 11:30 BMI result Body Mass Index 32.4 BMI Assessment/Plan discussion: High BMI High, discussed plan: weight reduction, dietary and physical activity Tobacco/Smoking Status: Tobacco use Status Tobacco use date assessed 10/30/23 10/30/23 11:32 Patient Tobacco Use Status Former Tobacco user 10/30/23 11:32 e-Cigarette/Vaping Use Never Used 10/30/23 11:32 PHQ-9: PHQ-9 Score PHQ-9: Total score 0 10/30/23 12:10 Depression Screening Interpretation: Negative Thrive Assessment: Date of Thrive Assessment Date Thrive assessed 10/30/23 10/30/23 11:35 Const General: no acute distress and alert Nutritional Appearance: obese Orientation/consciousness: patient oriented x3 HENMT Head: Yes normocephalic Ears: external ears normal General nose exam: Normal external nose present Face and sinus: Yes face symmetric Mouth: Normal oral and palatal mucosa present, oropharynx normal and moist mucous membranes Eyes General: appearance normal, both eyes and all related structures Neck Neck: Yes full ROM, Yes no lymphadenopathy and Yes supple Thyroid: Thyroid normal Resp Effort & Inspection: normal respiratory effort and able to speak in complete sentences Auscultation: clear to auscultation bilaterally Cardio Rate: regular rate Rhythm: regular rhythm Heart sounds: S1 normal heart sound present and S2 normal heart sound present GI Inspection: Yes obesity Palpation (GI): Soft to palpation, nontender, no guarding and no masses Auscultation: normal bowel sounds Back/Spine/Pelvis Back: No back tenderness Skin General skin exam: no rashes or lesions noted Nails: normal Neuro General: patient oriented x3, gait normal, moves all extremities, Normal light touch and pain sensation, no focal motor deficits, CN's II-XI intact bilaterally and normal sensation to monofilament Cranial nerves: Yes CN's II-XII intact bilaterally Cognition (Neuro): normal cognition Gait exam (Neuro): Normal gait present Extrem General: Yes full ROM, Yes no joint enlargement, Yes no clubbing, cyanosis or edema, Yes no calf tenderness and Yes normal gait Results AMB Hemoglobin A1c AMB Hemoglobin A1c 6.6 % Last Edit by Love Mosqueda CMA on 10/30/23 12:04 Results Reviewed Results Reviewed: Laboratory Last Values Hgb A1c (Clinic) 6.6 % (4.0-6.0) H 10/30/23 11:44 Laboratory Tests 07/27/23 10:32 Estimat Average Glucose 140 Hemoglobin A1c % 6.5 H dallas: Wojciech Flores Age/Sex: 78/M : 1945 Unit#: [id number] Attend Dr: Rosa Elena Brown MD Re07/27/23 Status: DEP [facility] Disch: SPEC : [id number] EMILY: 07/27/23 STATUS: COMP REQ : [id number] RECD: 07/27/23-[address]: Rosa Elena Brown MD COMP: 07/27/23-1208 ENTERED: 07/27/23-[address]: ORDERED: CMP Fast, Uric, Lipid Panel, Vitamin D 25-OH, Free T4, TSH Test Result Flag Reference Sodium 139 135-145 mmol/L Potassium 4.9 3.3-5.1 mmol/L CL 104 96-108 mmol/L CO2 26 22-29 mmol/L Gap 14 12-20 BUN 37 H 9-16 mg/dL Creat 2.17 H 0.5-1.4 mg/dL EGFR 29 NOTE: For [place] individuals, multiply the result by 1.210. Chronic Kidney Disease: Estimated GFR < 60 mL/min/1.73m2 Severe Kidney Disease: Estimated GFR < 15 mL/min/1.73m2 FBS 160 H 60-99 mg/dL A fasting glucose of 126 mg/dl or greater on more than one occasion is considered diagnostic of diabetes. Uric Acid 6.8 3.4-7.0 mg/dL CA 9.0 8.4-10.2 mg/dL Total Bili 0.7 0.0-1.0 mg/dL AST (GOT) 19 5-37 U/L ALT (GPT) 17 0-40 U/L Protein, Total 7.1 6.5-8.0 g/dL Alb 4.1 3.5-5.0 g/dL Triglyceride 196 H <150 mg/dL Desirable Triglyceride: less than 150 mg/dL Borderline High Triglyceride 150-199 mg/dL High Triglyceride: 200-499 mg/dL Very High Triglyceride: greater than or equal to 5OO mg/dL Cholesterol 109 <200 mg/dL Desirable Cholesterol: less than 200 mg/dL Borderline High Cholesterol: 200-239 mg/dL High Cholesterol: greater than 239 mg/dL LDL Calculated 52 <100 mg/dL Desirable LDL: less than 100 mg/dL Near Optimal/Above Optimal LDL: 110-129 mg/dL Borderline High LDL: 130-159 mg/dL High LDL: 160-189 mg/dL Very High LDL: greater than or equal to 190 mg/dL HDL 18 L >40 mg/dL Desirable HDL: greater than 40 mg/dL Note: This HDL assay may give artificially low results in patients with liver disease. Alk Phos 127 H 39-117 U/L Vit D 25-OH Tot 30.6 L >30 ng/mL Health Based Reference Values* < 20 ng/mL Deficient 20-30 ng/mL Insufficient > 30 ng/mL Sufficient *Yolanda ECHEVARRIA. N Engl J Med. 2007;357:266-280 Care must be taken in interpreting Vitamin D results from different laboratories and methodologies. Published data demonstrated that results from patients undergoing hemodialysis may show a negative bias when tested with various automated 25-OH vitamin D assays when compared to LC-MS/MS. When testing samples from patients whose predominant form of Vitamin D is Vitamin D2, such as patients receiving Vitamin D2 supplementation, results that are subtherapeutic should be confirmed with another method such as LC-MS/MS. Free T4 1.01 0.71-1.85 ng/dL TSH 3rd Gen. 1.99 0.32-4.0 uIU/mL TSH 3rd Generation ([facility]) Assessment and Plan Assessment & Plan (1) Hypercholesterolemia: Code(s): E78.00 - Pure hypercholesterolemia, unspecified Plan: Continue with atorvastatin 40 mg daily, reinforced importance of following a low-cholesterol diet and staying active, do at least 30 minutes of cardio exercises 3 times a week (2) Essential hypertension: Code(s): I10 - Essential (primary) hypertension Plan: Blood pressure at goal of less than 130/80. Continue losartan-HCTZ 100-25 mg tablet daily and metoprolol succinate ER 25 mg daily. Reinforced importance of following a low sodium diet, getting regular exercise, and lowering stress levels. (3) Acquired hypothyroidism: Code(s): E03.9 - Hypothyroidism, unspecified Plan: Thyroid levels are within normal limits, continue with levothyroxine 150 mcg daily in a.m. an hour before breakfast (4) Type 2 diabetes mellitus without complication, without long-term current use of insulin: Code(s): E11.9 - Type 2 diabetes mellitus without complications Plan: Diabetes mellitus stable and controlled on present treatment, continue with Farxiga, pioglitazone, sitagliptin Orders: Orders Thyroid Stimulating Hormone 10/30/23 E78.00 - Pure hypercholesterolemia, unspecified, I10 - Essential (primary) hypertension, E03.9 - Hypothyroidism, unspecified, E11.9 - Type 2 diabetes mellitus without complications Lipid Panel 10/30/23 E78.00 - Pure hypercholesterolemia, unspecified, I10 - Essential (primary) hypertension, E03.9 - Hypothyroidism, unspecified, E11.9 - Type 2 diabetes mellitus without complications AMB Hemoglobin A1c 10/30/23 E11.9 - Type 2 diabetes mellitus without complications Free T4 (Free Thyroxine) 10/30/23 E78.00 - Pure hypercholesterolemia, unspecified, I10 - Essential (primary) hypertension, E03.9 - Hypothyroidism, unspecified, E11.9 - Type 2 diabetes mellitus without complications Uric Acid 10/30/23 E78.00 - Pure hypercholesterolemia, unspecified, I10 - Essential (primary) hypertension, E03.9 - Hypothyroidism, unspecified, E11.9 - Type 2 diabetes mellitus without complications Coding Level of Care Code Est Pt Level 4 (94371) Complex EM visit Add On G2211 Diagnoses Hypercholesterolemia E78.00 Essential hypertension I10 Acquired hypothyroidism E03.9 Type 2 diabetes mellitus without complication, without long-term current use of insulin E11.9 Additional Codes KAY-7 Assessment Billing - KAY-7 Assessment Tool: KAY-7 Assessment 20332 ([id number])
== END 2023-10-30 12:14 | disposition home or self-care (01) ==
PROVIDERS: PCP Internal Medicine; Visit Provider Internal Medicine
DX: E11.9 Type 2 diabetes mellitus without complications (principal)
CPT/HCPCS: 83036; 99214; G2211

== ENCOUNTER 2023-12-06 10:22 | Outpatient (REF) | payer MEDICARE, SELFPAY ==
[2023-12-06 13:39] LABS: Anion Gap 13 (12-20); Blood Urea Nitrogen 35 mg/dL (9-16); Calcium 9.1 mg/dL (8.4-10.2); Carbon Dioxide 25 mmol/L (22-29); Chloride 103 mmol/L (96-108); Estimated Glomerular Filt Rate 32; Glucose Random 161 mg/dL (60-115); Potassium 4.5 mmol/L (3.3-5.1); Sodium 136 mmol/L (135-145)
[2023-12-06 13:52] LABS: Cholesterol 107 mg/dL (<200); HDL Cholesterol 24 mg/dL (>40); LDL Cholesterol Calculated 41 mg/dL (<100); Triglycerides 212 mg/dL (<150); Uric Acid 6.4 mg/dL (3.4-7.0)
[2023-12-06 13:59] LABS: Free T4 (Free Thyroxine) 0.94 ng/dL (0.71-1.85); Thyroid Stimulating Hormone 1.92 uIU/mL (0.32-4.0)
== END 2023-12-06 10:23 | disposition home or self-care (01) ==
LOC: HO.HMGCLDS 10:22
PROVIDERS: PCP Internal Medicine; Referring Provider Internal Medicine Nephrology; Visit Provider Internal Medicine
DX: E78.00 Pure hypercholesterolemia, unspecified (principal); E03.9 Hypothyroidism, unspecified; E11.22 Type 2 diabetes mellitus with diabetic chronic kidney disease; I12.9 Hypertensive chronic kidney disease with stage 1 through stage 4 chronic kidney disease, or unspecified chronic kidney disease; N18.32 Chronic kidney disease, stage 3b
CPT/HCPCS: 36415; 80048; 80061; 84439; 84443; 84550

== ENCOUNTER 2024-07-21 11:49 | Outpatient (AMB) | payer MEDICARE, SELFPAY ==
[2024-07-21 11:53] VITALS: BP 102/60; PULSE 68; RESP 16; TEMP 36.6; O2SAT 95; BMI 32.9
--- NOTE | 2024-07-21 11:53 | MHC.PC.OV ---
Vital Signs 07/21/24 11:53 Height 5 ft 8 in Weight 216 lb 8 oz BMI 32.9 BP 102/60 Blood Pressure Location Lt brachial Position Sitting Respiration 16 Pulse 68 Pulse Source Pulse Oximeter Temp 97.9 F Temp Source Oral Pulse Oximetry (%) 95 Oxygen Delivery Method Room Air Intake Visit Reasons: 6 month follow up Intake Note: Pt is here today for his 6 month follow up on DM. Allergies Penicillins Allergy (Severe, Verified 07/21/24 12:14) Anaphylaxis metformin Adverse Reaction (Verified 07/21/24 12:14) Diarrhea Medication List - Last Reconciled 07/21/24 by Rosa Elena Brown MD allopurinol 100 mg PO DAILY aspirin (Adult Low Dose Aspirin) 81 mg PO DAILY atorvastatin 40 mg PO DAILY dapagliflozin propanediol (Farxiga) 10 mg PO DAILY levothyroxine (Synthroid) 150 mcg PO DAILY losartan-hydrochlorothiazide 100-25 mg 1 tab PO DAILY metoprolol succinate ER 25 mg PO DAILY [Nature's bounty Krill oil PO] pioglitazone 30 mg PO DAILY potassium citrate ER PO sitagliptin phosphate (Januvia) 50 mg PO DAILY Tobacco use date assessed: 07/21/24 Last assessed Fall Risk: 07/21/24 Dental Screening Dental Screen Date: 07/21/24 Did you have a dental problem in the last 6 months where you did not have access to dental care?: No HPI 6 month follow up HPI Details Hemoglobin A1c today is 6.8% [facility] Medical History Kidney stone on right side Diabetic nephropathy Obstructive sleep apnea on CPAP Essential hypertension Hypercholesterolemia History of non-ST elevation myocardial infarction (NSTEMI) Chronic kidney disease, stage 3 Aortic stenosis Acquired hypothyroidism Type 2 diabetes mellitus without complication, without long-term current use of insulin Surgical History S/P excision of lipoma Social History Housing: House Patient Tobacco Use Status: Former Tobacco user e-Cigarette/Vaping Use: Never Used service: Yes Current occupational status: employed Cognitive needs: No Hearing needs: Yes Vision needs: Yes Questionnaire PHQ-9 Over the last 2 weeks, how often have you been bothered by any of the following problems? 1. Little interest or pleasure in doing things: not at all 2. Feeling down, depressed, or hopeless: not at all 3. Trouble falling or staying asleep, or sleeping too much: not at all 4. Feeling tired or having little energy: not at all 5. Poor appetite or overeating: not at all 6. Feeling bad about yourself - or that you are a failure or have let yourself or your family down: not at all 7. Trouble concentrating on things, such as reading the newspaper or watching television: not at all 8. Moving or speaking so slowly that other people could have noticed. Or the opposite - being so fidgety or restless that you have been moving around a lot more than usual: not at all 9. Thoughts that you would be better off or of hurting yourself in some way: not at all Total score: 0 Depression Screening Interpretation: Negative Depression Screening Done: Yes 79024 - PHQ-9 Billing: Yes Source: Developed by Drs. Odell Hawkins, Pretty Mackenzie, Chris Bernal and colleagues, with an educational jp from [employer]. Thrive Questionnaire Date Thrive assessed: 07/21/24 I am a: Patient What is your living situation today?: I have a steady place to live Within the past 12 months, did the food you bought not last and you didn't have the money to get more?: Never true Within the past 12 months, did you worry whether your food would run out before you got money to buy more?: Never true Do you have trouble paying for medicines?: No Do you have trouble getting transportation to medical appointments?: No Do you have trouble paying your heating and electricity bill?: No Do you have trouble taking care of your child, family member or friend?: No Do you have trouble with day-to-day activities such as bathing, preparing meals, shopping, managing finances, etc.?: No Are you currently unemployed and looking for a job?: Yes Are you interested in more education?: No Please select the resources that you would like help with: None Currently or been in a relationship where the following occur: No concerns reported THRIVE Score: 0 AUDIT C Alcohol Use Questionnaire (AUDIT-C) 1. How often do you have a drink containing alcohol?: Monthly or less 2. How many drinks containing alcohol do you have on a typical day when you are drinking?: 1 or 2 3. How often do you have six or more drinks on one occasion?: Never Total Score: 1 Score Reviewed/Action Taken: Yes KAY-7 AMB Questionnaire KAY-7 Date KAY - 7 assessed: 07/21/24 Feeling nervous, anxious, or on edge: 0 = Not at all Not being able to stop or control worryin = Not at all Worrying too much about different things: 0 = Not at all Trouble relaxin = Not at all Being so restless that it is hard to sit still: 0 = Not at all Becoming easily annoyed or irritable: 0 = Not at all Feeling afraid as if something awful might happen: 0 = Not at all Total KAY-7 score (0-4 normal; 5-9 mild; 10-14 moderate; 15-21 severe): 0 Source: Developed by Drs. Odell Hawkins, Pretty Mackenzie, Chris Bernal and colleagues, with an educational jp from [employer]. KAY-7 Assessment Billing KAY-7 Assessment Tool: KAY-7 Assessment 32870 Physical exam (Primary Care) Vital Signs: Last Vital Signs Temp 97.9 F 07/21/24 11:53 Pulse 68 07/21/24 11:53 Resp 16 07/21/24 11:53 BP 102/60 07/21/24 11:53 Pulse Ox 95 07/21/24 11:53 Oxygen Delivery Method Room Air 07/21/24 11:53 BMI result Body Mass Index 32.9 Tobacco/Smoking Status: Tobacco use Status Tobacco use date assessed 07/21/24 07/21/24 11:54 Patient Tobacco Use Status Former Tobacco user 07/21/24 11:54 e-Cigarette/Vaping Use Never Used 07/21/24 11:54 PHQ-9: PHQ-9 Score PHQ-9: Total score 0 07/21/24 12:15 Depression Screening Interpretation: Negative Thrive Assessment: Date of Thrive Assessment Date Thrive assessed 07/21/24 07/21/24 12:00 Currently or been in a relationship where the following occur: No concerns reported Results AMB Hemoglobin A1c AMB Hemoglobin A1c 6.8 % Last Edit by Love Mosqueda CMA on 07/21/24 13:02 Coding Diagnoses Type 2 diabetes mellitus without complication, without long-term current use of insulin E11.9 Acquired hypothyroidism E03.9 Hypercholesterolemia E78.00 Essential hypertension I10 Nocturia R35.1 Additional Codes KAY-7 Assessment Billing - KAY-7 Assessment Tool: KAY-7 Assessment 92269 ([id number]) PHQ-9 - 60274 - PHQ-9 Billing: Yes ([id number]) Assessment & Plan Assessment & Plan (1) Type 2 diabetes mellitus without complication, without long-term current use of insulin: Code(s): E11.9 - Type 2 diabetes mellitus without complications Category: Medical (2) Acquired hypothyroidism: Code(s): E03.9 - Hypothyroidism, unspecified Category: Medical (3) Hypercholesterolemia: Code(s): E78.00 - Pure hypercholesterolemia, unspecified Category: Medical (4) Essential hypertension: Code(s): I10 - Essential (primary) hypertension Category: Medical (5) Nocturia: Code(s): R35.1 - Nocturia Orders: Orders Lipid Panel Today E03.9 - Hypothyroidism, unspecified, E11.9 - Type 2 diabetes mellitus without complications, E78.00 - Pure hypercholesterolemia, unspecified, I10 - Essential (primary) hypertension, I25.2 - Old myocardial infarction, R35.1 - Nocturia Free T4 (Free Thyroxine) Today E03.9 - Hypothyroidism, unspecified, E11.9 - Type 2 diabetes mellitus without complications, E78.00 - Pure hypercholesterolemia, unspecified, I10 - Essential (primary) hypertension, I25.2 - Old myocardial infarction, R35.1 - Nocturia Basic Metabolic Panel Fasting Today E03.9 - Hypothyroidism, unspecified, E11.9 - Type 2 diabetes mellitus without complications, E78.00 - Pure hypercholesterolemia, unspecified, I10 - Essential (primary) hypertension, I25.2 - Old myocardial infarction, R35.1 - Nocturia PSA,Total (Free>4and<10) Today E03.9 - Hypothyroidism, unspecified, E11.9 - Type 2 diabetes mellitus without complications, E78.00 - Pure hypercholesterolemia, unspecified, I10 - Essential (primary) hypertension, I25.2 - Old myocardial infarction, R35.1 - Nocturia Uric Acid Today E03.9 - Hypothyroidism, unspecified, E11.9 - Type 2 diabetes mellitus without complications, E78.00 - Pure hypercholesterolemia, unspecified, I10 - Essential (primary) hypertension, I25.2 - Old myocardial infarction, R35.1 - Nocturia Thyroid Stimulating Hormone Today E03.9 - Hypothyroidism, unspecified, E11.9 - Type 2 diabetes mellitus without complications, E78.00 - Pure hypercholesterolemia, unspecified, I10 - Essential (primary) hypertension, I25.2 - Old myocardial infarction, R35.1 - Nocturia Aspartate Amino Transferase Today E03.9 - Hypothyroidism, unspecified, E11.9 - Type 2 diabetes mellitus without complications, E78.00 - Pure hypercholesterolemia, unspecified, I10 - Essential (primary) hypertension, I25.2 - Old myocardial infarction, R35.1 - Nocturia Alanine Aminotransferase Today E03.9 - Hypothyroidism, unspecified, E11.9 - Type 2 diabetes mellitus without complications, E78.00 - Pure hypercholesterolemia, unspecified, I10 - Essential (primary) hypertension, I25.2 - Old myocardial infarction, R35.1 - Nocturia AMB Hemoglobin A1c Today E11.9 - Type 2 diabetes mellitus without complications
--- OUTSIDE RECORDS SUMMARY | 2024-07-21 12:59 | XMS_ITS | Encounter Summary ---
Author Organization [facility] Address [address] [place] [address] Phone Care Team Providers Care Stranding Machine Operator Name Role Phone Ismael Brown MD Primary Care Provider +1- [phone] Encounter Details Date Type Department Care Team (Late st Contact Info) Description 04/19/2022 Documentation Only [facility] [address] [place] [address] Eunice Anderson PA Social History Tobacco Use Types Packs/Day Years Used Date Smoking Tobacco: Never Sex and Gender Information Value Date Recorded Sex Assigned at Not on file Legal Sex Male 4:33 PM EST Gender Identity Not on file Sexual Orientation Not on file documented as of this encounter Plan of Treatment Upcoming Encounters Date Type Department Care Team (Late st Contact Info) Description 07/29/2024 10:50 AM EST Office Visit [facility] [address] [place] [address] Rashid Rubalcava MD [address] [facility] [place] [address] 09/22/2024 9:50 AM EDT Office Visit [facility] [address] [place] [phone] Rashid Rubalcava MD [address] [facility] [place] [address] documented as of this encounter Visit Diagnoses Not on filedocumented in this encounter Care Teams Stranding Machine Operator Relationship Specialty Start Date End Date Ismael Brown MD [address] [place] [address] PCP - General Internal Medicine 01/29/23 documented as of this encounter
--- OUTSIDE RECORDS SUMMARY | 2024-07-21 12:59 | XMS_ITS | Encounter Summary ---
Author Organization [facility] Address [address] [place] [address] Phone Care Team Providers Care Fruit Tester Name Role Phone Ismael Brown MD Primary Care Provider +1- [phone] Encounter Details Date Type Department Care Team (Late st Contact Info) Description 08/23/2021 Documentation Only [facility] Of [address] [place] [address] Eunice Anderson PA Social History [...] Visit [facility] [address] [place] [address] Rashid Rubalcava MD [address] [facility] [place] [address] 09/22/2024 9:50 AM EDT Office Visit [facility] [address] [place] [address] Rashid Rubalcava MD [address] [facility] [place] [address] documented as of this encounter Visit Diagnoses Not on filedocumented in this encounter Care Teams Fruit Tester Relationship Specialty Start Date End Date Ismael Brown MD [address] [place] [address] PCP - General Internal Medicine 01/29/23 documented as of this encounter
--- OUTSIDE RECORDS SUMMARY | 2024-07-21 12:59 | XMS_ITS | Encounter Summary ---
Author Organization [facility] Address [address] [facility] [address] [place] [address] Phone Care Team Providers Care Senior Project Accountant Name Role Phone Ismael Brown MD Primary Care Provider +1- [phone] Reason for Visit * Reason Comments Med Refill Encounter Details Date Type Department Care Team (Late st Contact Info) Description 07/20/2022 Refill [facility] [address] [place] [phone] Eunice Anderson, PA Social History Tobacco Use Types Packs/Day [...] Visit [facility] [address] [facility] [place] [phone] Rashid Rubalcava MD [address] [facility] [place] [address] 09/22/2024 9:50 AM EDT Office Visit [facility] [address] [facility] [place] [address] Rashid Rubalcava MD [address] [facility] [place] [phone] documented as of this encounter Visit Diagnoses Not on filedocumented in this encounter Care Teams Senior Project Accountant Relationship Specialty Start Date End Date Ismael Brown MD [address] [place] [address] PCP - General Internal Medicine 01/29/23 documented as of this encounter
--- OUTSIDE RECORDS SUMMARY | 2024-07-21 12:59 | XMS_ITS | Encounter Summary ---
Author Organization [facility] Address [address] [place] [address] Phone Care Team Providers Care Billing And Insurance Coordinator Name Role Phone Ismael Brown MD Primary Care Provider +1- [phone] Encounter Details Date Type Department Care Team (Late st Contact Info) Description 06/23/2024 9:50 AM EST Office Visit [facility] [address] [facility] [place] [phone] Rashid Rubalcava MD [address] [place] [address] [place] [phone] Stage 3b chronic kidney disease (HCC) (Primary Dx) Social History Tobacco Use Types Packs/Day Years Used Date Smoking Tobacco: Never Sex and Gender Information Value Date Recorded Sex Assigned at Not on file Legal Sex Male 4:33 PM EST Gender Identity Not on file Sexual Orientation Not on file documented as of this encounter Progress Notes * Rashid Rubalcava MD - 06/23/2024 9:50 AM EST Images from the original note were not included. PATIENT: Wojciech Flores : 1945 ENCOUNTER: 06/23/2024 PCP: Ismael Brown MD HPI: Wojciech Flores is a 79 y.o. year old male with a history of longstanding hypertension, hyperlipidemia, diabetes mellitus, sleep apnea, past episode of acute kidney injury secondary to urosepsis in the setting of nephrolithiasis who now presents for further evaluation. Since his last visit, the patient has developed an episode of gross hematuria that was not associated with a urinary tract infection. The patient's serum creatinine is stable with his usual range between 1.7 and 2 mg/dL.His most recent serum creatinine was stable at 2 mg/dL. ROS: Constitutional: No fever. Respiratory: No shortness of breath. Cardiovascular: No chest pain. Gastrointestinal: No abdominal pain, nausea or vomiting. Genitourinary: No hematuria. All other systems reviewed and are negative. PAST MEDICAL HISTORY: Patient Active Problem List Diagnosis Date Noted Stage 3b chronic kidney disease (HCC) Essential hypertension Type 2 diabetes mellitus (HCC) PAST SURGICAL HISTORY: History reviewed. No pertinent surgical history. SOCIAL HISTORY: Social History Tobacco Use Smoking status: Never Smokeless tobacco: Not on file Substance Use Topics Alcohol use: Not on file FAMILY HISTORY: Family History Problem Relation Age of Onset Leukemia Father Pulmonary fibrosis Father MEDICATIONS: Outpatient Encounter Medications as of 06/23/2024 Medication Sig Dispense Refill allopurinol (ZYLOPRIM) 100 MG tablet Take 1 tablet (100 mg total) by mouth 1 (one) time each day 90tablet 3 ASPIRIN 81 PO Take 81 mg by mouth 1 (one) time each day atorvastatin (LIPITOR) 40 MG tablet Take 40 mg by mouth every night Farxiga 10 MG tablet TAKE 1 TABLET DAILY 90 tablet 3 levothyroxine sodium (TIROSINT) 125 MCG capsule Take 125 mcg by mouth 1 (one) time each day losartan-hydroCHLOROthiazide (HYZAAR) 100-25 MG per tablet Take 1 tablet by mouth 1 (one) time eachday 30 tablet 3 metoprolol succinate XL (TOPROL-XL) 25 MG 24 hr tablet Take 25 mg by mouth 1 (one) time each day Donot crush or chew. akrmcfdojtht-ieze-qnsliczt-folic acid (CENTRUM) chewable tablet Chew 1 tablet 1 (one) time each day omega-3 acid ethyl esters (LOVAZA) 1 g capsule Take 2 g by mouth 2 (two) times a day [place]-3 Fatty Acids (Fish Oil) 1000 MG capsule delayed-release Take by mouth potassium citrate 10 MEQ (1080 MG) CR tablet Take 1 tablet (10 mEq total) by mouth in the morning and 1 tablet (10 mEq total) in the evening. Take with meals. Do not crush, chew, or split.. 180 tablet 3 Turmeric 500 MG capsule Take by mouth No facility-administered encounter medications on file as of 06/23/2024. MEDICATION REVIEW: I have reviewed the patient's current medications. ALLERGIES: is allergic to metformin and penicillins. PHYSICAL EXAM: There were no vitals taken for this visit. Constitutional: No apparent distress Cardiovascular: No friction rub. Pulmonary/Chest: No rales. Abdominal: Soft and non-tender. Extremities: Edema None LABS: Chemistry Lab Units 06/11/24 1116 12/24/22 1055 07/23/22 1406 CREATININE mg/dL 2.05* 1.6* 1.7* 1.8* BUN mg/dL 43* 33* 33* 30* POTASSIUM mmol/L 4.6 5.1 5.1 4.7 SODIUM mmol/L 136 133 135 140 CO2 mmol/L 21 24 24 27 CHLORIDE mmol/L 96 97* 98 102 ALBUMIN GM/DL -- 4.6 4.5 4.4 EGFRNAFR ML/MIN/1.73 M2 -- 42 41 37 HEMOGLOBIN A1C % -- -- 6.9* WBC AUTO K/MM3 -- 10.9 10.9 10.8 HEMATOCRIT % -- 39.9* 39.9* 40.3* HEMOGLOBIN GM/DL -- 12.3* 12.3* 12.4* PLATELETS AUTO K/MM3 -- 298 298 363 Bone Mineral Lab Units 06/11/24 1116 12/24/22 1055 07/23/22 1406 CALCIUM mg/dL 8.8 9.1 9.1 9.0 PHOSPHORUS MG/DL -- 3.7 3.7 3.7 PTH PG/ML -- 30 39 VITAMIN D NG/ML -- 28.4 27.2 Urine Lab Units 12/24/22 1055 ALB MG/G CREAT UR MG/DL 22.2* 111.0 LABORATORY REVIEW: I have reviewed the labs noted above as well as in the chart, in CIS and in Care Everywhere. DOCUMENTATION REVIEW: I have reviewed the applicable outside notes located in the chart, in CIS and in Care Everywhere. ASSESSMENT: 1. 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 At this point his current medical issues include 1. CKD stage IIIb-Likely related to acute urinary obstruction and kidney injury associated with ischemic nephropathy although diabetes is always possible. Thankfully the patient remains clinically stable without any need for medication dose adjustment given his excellent renoprotective regimen, hiswonderful blood pressure control and his outstanding volume management. The patient will continue to follow his blood pressure periodically and contact me if he develops any new symptoms. I have not made any changes to his current medical regimen. 2. Gross hematuria-the patient will be referred to urology for evaluation of potential none stone related cause for his bleeding. Otherwise we will follow expectantly. No orders of the defined types were placed in this encounter. documented in this encounter Plan of Treatment Upcoming Encounters Date Type Department Care Team (Late st Contact Info) Description 07/29/2024 10:50 AM EST Office Visit [facility] [address] [place] [phone] Rashid Rubalcava MD [address] [place] [address] [place] [phone] 09/22/2024 9:50 AM EDT Office Visit [facility] [address] [place] [address] Rashid Rubalcava MD [address] [place] [address] [place] [phone] documented as of this encounter Visit Diagnoses Diagnosis Stage 3b chronic kidney disease (HCC)- Primary documented in this encounter Care Teams Billing And Insurance Coordinator Relationship Specialty Start Date End Date Ismael Brown MD [address] [place] [id number] PCP - General Internal Medicine 01/29/23 documented as of this encounter
--- OUTSIDE RECORDS SUMMARY | 2024-07-21 12:59 | XMS_ITS | Encounter Summary ---
Author Organization [facility] Address [address] [place] [address] Phone Care Team Providers Care Screedman/Laborer Name Role Phone Ismael Brown MD Primary Care Provider +1- [phone] Encounter Details Date Type Department Care Team (Late st Contact Info) Description 06/13/2022 Documentation Only [facility] [address] [place] [address] Eunice Anderson PA Social History [...] Visit [facility] [address] [place] [address] Rashid Rubalcava MD [address] [facility] [place] [address] 09/22/2024 9:50 AM EDT Office Visit [facility] [address] [place] [phone] Rashid Rubalcava MD [address] [facility] [place] [address] documented as of this encounter Visit Diagnoses Not on filedocumented in this encounter Care Teams Screedman/Laborer Relationship Specialty Start Date End Date Ismael Brown MD [address] [place] [address] PCP - General Internal Medicine 01/29/23 documented as of this encounter
--- OUTSIDE RECORDS SUMMARY | 2024-07-21 12:59 | XMS_ITS | Encounter Summary ---
Author Organization [facility] Address [address] [place] [address] Phone Care Team Providers Care Court Assistant Name Role Phone Ismael Bronw MD Primary Care Provider +1- [phone] Encounter Details Date Type Department Care Team (Late st Contact Info) Description 12/10/2023 Documentation Only [facility] [address] [place] [address] [place], [place] [address] [place] [address] Social History Tobacco Use Types Packs/Day Years [...] Visit [facility] [address] [place] [address] Rashid Rubalcava MD [address] [facility] [place] [phone] 09/22/2024 9:50 AM EDT Office Visit [facility] [address] [place] [address] Rashid Rubalcava MD [address] [place] [place] [address] documented as of this encounter Visit Diagnoses Not on filedocumented in this encounter Care Teams Court Assistant Relationship Specialty Start Date End Date Ismael Brown MD [facility] [place] [address] PCP - General Internal Medicine 01/29/23 documented as of this encounter
--- OUTSIDE RECORDS SUMMARY | 2024-07-21 12:59 | XMS_ITS | Encounter Summary ---
Author Organization [facility] Address [address] [place] [address] Phone Care Team Providers Care Global Manager Name Role Phone Ismael Brown MD Primary Care Provider +1- [phone] Encounter Details Date Type Department Care Team (Late st Contact Info) Description 04/04/2022 Documentation Only [facility] [address] [place] [address] Eunice Anderson PA Social History [...] Visit [facility] [address] [place] [address] Rashid Rubalcava MD [address] [facility] [place] [address] 09/22/2024 9:50 AM EDT Office Visit [facility] [address] [place] [address] Rashid Rubalcava MD [address] [facility] [place] [address] documented as of this encounter Visit Diagnoses Not on filedocumented in this encounter Care Teams Global Manager Relationship Specialty Start Date End Date Ismael Brown MD [address] [place] [address] PCP - General Internal Medicine 01/29/23 documented as of this encounter
--- OUTSIDE RECORDS SUMMARY | 2024-07-21 12:59 | XMS_ITS | Encounter Summary ---
Author Organization [facility] Address [address] [place] [address] Phone Care Team Providers Care Lei Seller Name Role Phone Ismael Brown MD Primary Care Provider +1- [phone] Encounter Details Date Type Department Care Team (Late st Contact Info) Description 10/04/2021 Documentation Only [facility] [address] [place] [address] Eunice Anderson PA Social History [...] Visit [facility] [address] [place] [address] Rashid Rubalcava MD [address] [facility] [place] [address] 09/22/2024 9:50 AM EDT Office Visit [facility] [address] [place] [phone] Rashid Rubalcava MD [address] [facility] [place] [address] documented as of this encounter Visit Diagnoses Not on filedocumented in this encounter Care Teams Lei Seller Relationship Specialty Start Date End Date Ismael Brown MD [address] [place] [address] PCP - General Internal Medicine 01/29/23 documented as of this encounter
--- OUTSIDE RECORDS SUMMARY | 2024-07-21 12:59 | XMS_ITS | Encounter Summary ---
Author Organization [facility] Address [address] [place] [address] Phone Care Team Providers Care Dinking Machine Operator Name Role Phone Ismael Brown MD Primary Care Provider +1- [phone] Encounter Details Date Type Department Care Team (Late st Contact Info) Description 08/09/2023 Documentation Only [facility] [address] [place] [address] [place], [place] [address] [place] [address] Social History Tobacco Use Types [...] Visit [facility] [address] [place] [address] Rashid Rubalcava MD [address] [facility] [place] [address] 09/22/2024 9:50 AM EDT Office Visit [facility] [address] [place] [address] Rashid Rubalcava MD [address] [place] [address] documented as of this encounter Visit Diagnoses Not on filedocumented in this encounter Care Teams Dinking Machine Operator Relationship Specialty Start Date End Date Ismael Brown MD [facility] [place] [address] PCP - General Internal Medicine 01/29/23 documented as of this encounter
--- OUTSIDE RECORDS SUMMARY | 2024-07-21 12:59 | XMS_ITS | Encounter Summary ---
Author Organization [facility] Address [address] [place] [address] Phone Care Team Providers Care Donkey Engine Firer/Fireman Name Role Phone Ismael Brown MD Primary Care Provider +1- [phone] Encounter Details Date Type Department Care Team (Late st Contact Info) Description 07/13/2022 Documentation Only [facility] Of [address] [place] [address] Eunice Anderson PA Social History [...] Visit [facility] Of [address] [place] [address] Rashid Rubalcava MD [address] [facility] [place] [address] 09/22/2024 9:50 AM EDT Office Visit [facility] [address] [place] [address] Rashid Rubalcava MD [address] [facility] [place] [address] documented as of this encounter Visit Diagnoses Not on filedocumented in this encounter Care Teams Donkey Engine Firer/Fireman Relationship Specialty Start Date End Date Ismael Brown MD [address] [place] [address] PCP - General Internal Medicine 01/29/23 documented as of this encounter
--- OUTSIDE RECORDS SUMMARY | 2024-07-21 12:59 | XMS_ITS | Data Portability ---
Author Organization [place] - [facility], [address] Address [address] [place] [address] Assessment No assessment recorded. Plan of Treatment Reminders Order Date Submit Date Provider Last Modified By Organization Details Last Modified Time Details Appointments None record ed. Lab None record ed. Referral None record ed. Procedures None record ed. Surgeries None record ed. Imaging None record ed. Medication Orders None record ed. Patient TargetsNo targets recorded. Patient InstructionsNo instructions recorded. Reason for Referral None Reported. Procedures Surgical History Date Name Laterality Status Provider Name and Address Organization Details Recorded Time 3 [facility] PHYSICAL completed ARMAAN ZENA [facility] - [email or web address] [facility] 08/22/2022 14:40:40 Imaging Results None recorded. Procedure Notes None recorded. Medical Equipment None Reported. Medications Name Sig Start Date Stop Date Status Note LastModified by Organization Details LastModified Time fluconazole 100 mg tablet TAKE ONE TABLET DAY BEFORE PROCEDURE AND ON AM OF PROCEDURE WITH SIP OF WATER active Not Available Not Available No t Available atorvastatin 40 mg tablet active Not Available Not Available Not Available Synthroid 150 mcg tablet active Not Available Not Available N ot Available allopurinol 100 mg tablet TAKE 1 TABLET BY MOUTH 1 TIME EACH DAY. active Not Available Not Available No t Available losartan 100 mg-hydrochlor othiazide 25 mg tablet active Not Available Not Available No t Available potassium citrate ER 10 mEq (1,080 mg) tablet,extend ed release TAKE 1 TABLET BY MOUTH IN THE MORNING AND 1 TABLET IN EVENING WITH MEALS-DO NOT CRUSH, CHEW OR SPLIT active Not Available Not Available No t Available metoprolol succinate ER 25 mg tablet,extend ed release 24 hr TAKE 1 TABLET BY MOUTH DAILY FOR 14 DAYS active Not Available Not Available No t Available levofloxacin 750 mg tablet TAKE 1 TABLET BY MOUTH EVERY 24 HOURS FOR 9 DAYS active Not Available Not Available No t Available pioglitazone 30 mg tablet active Not Available Not Available Not Available Januvia 50 mg tablet active Not Available Not Available Not Available Farxiga 5 mg tablet TAKE 1 TABLET BY MOUTH DAILY active Not Available Not Available No t Available Vitals None Recorded Social History None recorded. Functional Status None recorded. Mental Status None recorded. Family History Nothing Reported. Medical History No medical history recorded. Past Encounters Encounter ID Performer Location Encounter Start Date Encounter Closed Date Diagnosis/Indication Diagnosis SNOMED-CT Code Diagnosis ICD10 Code Diagnosis Note [id number] [address] [place] [address] 08/03/2017 09:51:25 08/03/2017 11:59:17 [id number] [facility] [address] [place] [address] 03/01/2022 09:49:31 03/01/2022 12:05:59 [id number] [address] [place] [address] 01/25/2018 13:06:15 01/25/2018 14:12:42 [id number] [address] [place] [address] 07/25/2018 12:40:42 07/25/2018 15:26:33 [id number] [address] [place] [address] 01/07/2017 09:43:52 01/07/2017 11:03:29 [id number] Jasmine Boswell MD [address] [place] [address] 08/22/2022 13:38:23 08/22/2022 16:41:19 Press Operator Assistant license medical examination [id number] Z02.4 Physical examination [id number] 0005 Z02.4 Health Concerns Section Related Observation LastModified by Organization Detai ls LastModified Time None Recorded Concern Status LastModified by Organization Details LastModified Time None Recorded Advance Directives Directive None Recorded Payers Encounter Date Sequence Insurance Name Policy Number Policy Nazario Covered Member ID Nazario Member ID Guarantor Name 08/22/2022 ANNY-DOROTHEA Flores [id number] Wojciech Flores
--- OUTSIDE RECORDS SUMMARY | 2024-07-21 12:59 | XMS_ITS | Clinical Summary ---
Author Organization [facility], Address [address] [place] [address] [place] [address] Phone Care Team Providers Care Label Cutter Name Role Phone Ismael Brown MD Primary Care Provider +1- [phone] Allergies Active Allergy Reactions Criticality Noted Date Comments Metformin Diarrhea 06/08/2019 Penicillins 06/08/2019 Medications ASPIRIN 81 PO Take 81 mg by mouth 1 (one) time each day Active atorvastatin (LIPITOR) 40 MG tablet Take 40 mg by mouth every night 01/30/2018 Active levothyroxine sodium (TIROSINT) 125 MCG capsule Take 125 mcg by mouth 1 (one) time each day Active omega-3 acid ethyl esters (LOVAZA) 1 g capsule Take 2 g by mouth 2 (two) times a day Active multivitamin-ir te-hgtxknva-hcx ic acid (CENTRUM) chewable tablet Chew 1 tablet 1 (one) time each day Active [place]-3 Fatty Acids (Fish Oil) 1000 MG capsule delayed-release Take by mouth Active Turmeric 500 MG capsule Take by mouth Active metoprolol succinate XL (TOPROL-XL) 25 MG 24 hr tablet Take 25 mg by mouth 1 (one) time each day Do not crush or chew. Active allopurinol (ZYLOPRIM) 100 MG tablet Take 1 tablet (100 mg total) by mouth 1 (one) time each day 90 tablet 3 01/08/2024 Active Farxiga 10 MG tablet TAKE 1 TABLET DAILY 90 tablet 3 04/15/2024 Active losartan-hydroC HLOROthiazide (HYZAAR) 100-25 MG per tablet Take 1 tablet by mouth 1 (one) time each day 30 tablet 3 06/11/2024 Active potassium citrate 10 MEQ (1080 MG) CR tablet Take 1 tablet (10 mEq total) by mouth in the morning and 1 tablet (10 mEq total) in the evening. Take with meals. Do not crush, chew, or split.. 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 Resolved Problems Problem Noted Date Diagnosed Date Resolved Date Renal disorder due to type 2 diabetes mellitus 06/08/2019 09/07/2019 Cardiac murmur 09/05/2020 Hypercholesterolemia 021 Hypothyroidism 09/05/2020 Encounters Date Type Department Care Team Description 06/23/2024 9:50 AM EST Office Visit [facility] [address] [place] [address] Rashid Rubalcava MD Stage 3b chronic kidney disease (HCC) (Primary Dx) 06/18/2024 Refill [facility] [address] [place] [address] Elba Hall [place] 06/17/2024 Refill [facility] [address] [place] [address] Rashid Rubalcava MD 06/11/2024 Refill [facility] [address] [place] [address] Elba Hall [place] 06/11/2024 Refill [facility] [address] [place] [address] Elba Hall [place] 06/11/2024 Refill [facility] [address] [place] [address] Elba aHll [place] 04/22/2024 10:40 AM EST Office Visit [facility] [address] [place] [address] Rashid Rubalcava MD Stage 3b chronic kidney disease (HCC) (Primary Dx) from Last 3 Months Immunizations Name Administration Dates Next Due Influenza Vaccine, Quadrivalent, Adjuvanted 02/02 Influenza, Unspecified 03/25/2018 Pneumococcal Conjugate 13-Valent 09/20/2018 Td 11/25/2012 Family History Medical History Relation Comments Leukemia Father Pulmonary fibrosis Father Relation Status Comments Father Social History Tobacco Use Types Packs/Day Years Used Date Smoking Tobacco: Never Sex and Gender Information Value Date Recorded Sex Assigned at Not on file Legal Sex Male 4:33 PM EST Gender Identity Not on file Sexual Orientation Not on file Last Filed Vital Signs Vital Sign Reading Time Taken Comments Blood Pressure 129/62 07/23/2022 2:01 PM EST Pulse 70 07/23/2022 2:01 PM EST Temperature - - Respiratory Rate - - Oxygen Saturation - - Inhaled Oxygen Concentration - - Weight 107 kg (235 lb) 06/09/2019 10:01 AM EST Height 172.7 cm (5' 8 ) 06/09/2019 10:01 AM EST Body Mass Index 35.73 06/09/2019 10:01 AM EST Plan of Treatment Upcoming Encounters Date Type Department Care Team (Late st Contact Info) Description 07/29/2024 10:50 AM EST Office Visit [facility] [address] [place] [address] Rashid Rubalcava MD [address] [facility] [place] [phone] 09/22/2024 9:50 AM EDT Office Visit [facility] [address] [place] [phone] Rashid Rubalcava MD [address] [place] [phone] Health Maintenance Due Date Last Done Comments Diabetes: Ophthalmology Exam 06/08/2019 Diabetes: Pedal Pulse Checked 06/08/2019 Diabetes: Sensory Foot Exam 06/08/2019 Diabetes: Visual Foot Exam 06/08/2019 Diabetes: Hemoglobin A1C 10/20/2022 023, 12/05/2021, 07/22/2021, Additional history exists Influenza Vaccine (#1) 2024 0, 02/24/2020, 03/25/2018, Additional history exists Pneumococcal Vaccine: 65+ Years Completed 09/20/2018, 09/21/2015, 04/01/2008 Hepatitis B Vaccine Aged Out No longe r eligible based on patient's age to complete this topic Procedures Procedure Name Priority Date/Time Associated Diagnosis Comments REFLEXIVE URINE CULTURE (HC) Routine 06/11/2024 11:16 AM EST BASIC METABOLIC PANEL Routine 06/11/2024 11:16 AM EST URINALYSIS, COMPLETE Routine 06/11/2024 11:16 AM EST Stage 3b chronic kidney disease (HCC) Urinary tract infection, not otherwise specified MICROSCOPIC EXAMINATION - DO NOT USE Routine 06/11/2024 11:16 AM EST HEMOGLOBIN A1C Routine 07/23/2022 2:06 PM EST Stage 3b chronic kidney disease (HCC) from Last 3 Months or Most Recently Relevant to Health Maintenance Results * Reflexive Urine Culture (06/11/2024 11:16 AM EST) Culture Result, Urine Final report [facility] Result No growth [facility] 06/11/2024 11:1 6 AM EST 06/11/2024 us Rashid Rubalcava MD LAB [id number] SOLICITED RESULTS Final Result [facility] [address], [address] [place] [address] * (ABNORMAL) Urinalysis, Complete w/reflex to Culture (06/11/2024 11:16 AM EST) Specific [place], Urine 1.022 1.005 - 1.030 [facility] pH Urine 6.0 5.0 - 7.5 [facility] Color, Urine Yellow Yellow [facility] Appearance Urine Cloudy(A) Clear [facility] WBC Esterase Urine 2+(A) Negative [facility] Protein, Ur 1+(A) Negative/Tra ce [facility] Glucose, Ur 3+(A) Negative [facility] [phone] Ketones, Urine Negative Negative [facility] Blood Urine 2+(A) Negative [facility] Bilirubin Urine Negative Negative [facility] Urobilinogen Urine 0.2 0.2 - 1.0 mg/dL [facility] Nitrite, Urine Negative Negative [facility] Microscopic Examination See below: [facility] Comment:Microscopic was gladys cated and was performed. URINALYSIS REFLEX Comment [facility] Comment:This specimen has re flexed to a Urine Culture. Urine (Urine, Clean Catch) 06/11/2024 11:16 AM EST 06/11/2024 us Rashid Rubalcava MD LAB URINE ORDERABLES Final Re sult [facility] [address] [place] [address] * (ABNORMAL) Microscopic Examination (06/11/2024 11:16 AM EST) WBC, Urine >30(A) 0 - 5 /hpf [facility] RBC, Urine >30(A) 0 - 2 /hpf [facility] Squamous Epithelial, Urine None seen 0 - 10 /hpf [facility] Casts None seen None seen /lpf [facility] Bacteria, Urine None seen None seen/Few [facility] 06/11/2024 11:1 6 AM EST 06/11/2024 Rashid Rubalcava MD LAB MICROBIOLOGY - GENERAL OR DERABLES Final Result [facility] [address] [place] [address] * (ABNORMAL) Basic Metabolic Panel (06/11/2024 11:16 AM EST) Pathologist [facility] Glucose 244(H) 70 - 99 mg/dL [facility] BUN 43(H) 8 - 27 mg/dL [facility] Creatinine 2.05(H) 0.76 - 1.27 mg/dL [facility] eGFR CKD-EPI CR 2020 32(L) >59 mL/min/1.7 3 [facility] BUN/Creatinine Ratio 21 10 - 24 [facility] Sodium 136 134 - 144 mmol/L [facility] Potassium 4.6 3.5 - 5.2 mmol/L [facility] Bicarbonate (CO2) 21 20 - 29 mmol/L [facility] Calcium 8.8 8.6 - 10.2 mg/dL [facility] Chloride 96 96 - 106 mmol/L [facility] 06/11/2024 11:1 6 AM EST 06/11/2024 us Rashid Rubalcava MD LAB BLOOD ORDERABLES Final Re sult Performing Organization Address [facility]/ZIP Co de Phone Number [facility] [address] [place] [phone] * (ABNORMAL) Hemoglobin A1c (07/23/2022 2:06 PM EST) Hemoglobin A1C 6.9(H) (4.0-5.6) % [facility] Comment: MONITORING: In known diabetic patients, hemoglobin A1c targets should be discussed with health care provider. DIAGNOSTIC USE: ??The [place] Diabetes Association (ADA) and the World Health Organization (WHO) recommend the use of HbA1c to diagnose diabetes using a threshold of 6.5%. Patients who have an HbA1c between 5.7% and 6.4% are considered at increased risk for developing diabetes in the future. CAUTION: Falsely low HbA1c results may be observed in patients with hemolytic anemia, homozygous forms of abnormal hemoglobin (e.g. SS, CC, SC), , recent blood loss or hemoglobin F greater than 7%. Fructosamine may be used as an alternate test in these cases. REFERENCE: ADA: Standards of Medical Care in Diabetes 2020, The Journal of Clinical and Applied Research and Education Volume 43, Supplement 1 Testing performed or reported by [facility], a [facility] of [facility], [address] [place] [address] Payal Smith MD, Glaze Handler [facility]# [id number] Blood (Blood, Venous) 07/23/2022 2:06 PM EST 07/23/2022 2:07 PM EST us Eunice MURRAY LAB BLOOD ORDERABLES Final Res ult Performing Organization Address [facility]/ZIP Co de Phone Number [facility] from Last 3 Months or Most Recently Relevant to Health Maintenance Insurance [employer] MEDICARE Care Teams Label Cutter Relationship Specialty Start Date End Date Ismael Brown MD [employer] [place] [address] PCP - General Internal Medicine 01/29/23
--- OUTSIDE RECORDS SUMMARY | 2024-07-21 12:59 | XMS_ITS | Encounter Summary ---
Author Organization [facility] Address [address] [place] [address] Phone Care Team Providers Care Processing Specialist Name Role Phone Ismael Brown MD Primary Care Provider +1- [phone] Encounter Details Date Type Department Care Team (Late st Contact Info) Description 04/19/2022 Documentation Only [facility] [address] [place] [address] Eunice Anderson PA Social History [...] Visit [facility] [address] [place] [address] Rashid Rubalcava MD [address] [facility] [place] [address] 09/22/2024 9:50 AM EDT Office Visit [facility] [address] [place] [address] Rashid Rubalcava MD [address] [facility] [place] [address] documented as of this encounter Visit Diagnoses Not on filedocumented in this encounter Care Teams Processing Specialist Relationship Specialty Start Date End Date Ismael Brown MD [address] [place] [address] PCP - General Internal Medicine 01/29/23 documented as of this encounter
--- OUTSIDE RECORDS SUMMARY | 2024-07-21 12:59 | XMS_ITS | Encounter Summary ---
Author Organization [facility] Address [address] [place] [address] Phone Care Team Providers Care Manager Integrated Name Role Phone Ismael Brown MD Primary Care Provider +1- [phone] Encounter Details Date Type Department Care Team (Late st Contact Info) Description 03/02/2022 Documentation Only [facility] [address] [place] [address] Eunice Anderson PA Social History [...] [facility] [address] [place] [address] Rashid Rubalcava MD [address] [facility] [place] [address] 09/22/2024 9:50 AM EDT Office Visit [facility] [address] [place] [address] Rashid Rubalcava MD [address] [facility] [place] [address] documented as of this encounter Visit Diagnoses Not on filedocumented in this encounter Care Teams Manager Integrated Relationship Specialty Start Date End Date Ismael Brown MD [address] [place] [address] PCP - General Internal Medicine 01/29/23 documented as of this encounter
--- OUTSIDE RECORDS SUMMARY | 2024-07-21 12:59 | XMS_ITS | Encounter Summary ---
Author Organization [facility] Address [address] [place] [address] Phone Care Team Providers Care Rn Community Name Role Phone Ismael Brown MD Primary Care Provider +1- [phone] Encounter Details Date Type Department Care Team (Late st Contact Info) Description 01/06/2022 Documentation Only [facility] [address] [place] [address] Eunice Anderson PA Social History [...] Visit [facility] [address] [place] [address] Rashid Rubalcava MD [address] [facility] [place] [address] 09/22/2024 9:50 AM EDT Office Visit [facility] [address] [place] [phone] Rashid Rubalcava MD [address] [facility] [place] [address] documented as of this encounter Visit Diagnoses Not on filedocumented in this encounter Care Teams Rn Community Relationship Specialty Start Date End Date Ismael Brown MD [address] [place] [address] PCP - General Internal Medicine 01/29/23 documented as of this encounter
--- OUTSIDE RECORDS SUMMARY | 2024-07-21 12:59 | XMS_ITS | Encounter Summary ---
Author Organization [facility] Address [address] [place] [address] Phone Care Team Providers Care Road Commissioner Name Role Phone Ismael Brown MD Primary Care Provider +1- [phone] Encounter Details Date Type Department Care Team (Late st Contact Info) Description 07/04/2021 Documentation Only [facility] [address] [place] [address] Eunice Anderson PA Social History [...] Visit [facility] [address] [place] [address] Rashid Rubalcava MD [address] [facility] [place] [address] 09/22/2024 9:50 AM EDT Office Visit [facility] [address] [place] [place] [address] Rashid Rubalcava MD [address] [facility] [address] [place] [address] documented as of this encounter Visit Diagnoses Not on filedocumented in this encounter Care Teams Road Commissioner Relationship Specialty Start Date End Date Ismael Brown MD [address] [place] [address] PCP - General Internal Medicine 01/29/23 documented as of this encounter
--- OUTSIDE RECORDS SUMMARY | 2024-07-21 12:59 | XMS_ITS | Encounter Summary ---
Author Organization [facility] Address [address] [place] [address] Phone Care Team Providers Care Executive Director Sheltered Workshop Name Role Phone Ismael Brown MD Primary Care Provider +1- [phone] Encounter Details Date Type Department Care Team (Late st Contact Info) Description 09/11/2021 Documentation Only [facility] [address] [place] [address] Eunice Anderson PA Social History [...] Visit [facility] [address] [place] [address] Rashid Rubalcava MD [address] [facility] [place] [address] 09/22/2024 9:50 AM EDT Office Visit [facility] [address] [place] [address] Rashid Rubalcava MD [address] [facility] [place] [address] documented as of this encounter Visit Diagnoses Not on filedocumented in this encounter Care Teams Executive Director Sheltered Workshop Relationship Specialty Start Date End Date Ismael Brown MD [address] [place] [address] PCP - General Internal Medicine 01/29/23 documented as of this encounter
--- OUTSIDE RECORDS SUMMARY | 2024-07-21 12:59 | XMS_ITS | Encounter Summary ---
Author Organization [facility] Address [address] [place] [address] Phone Care Team Providers Care Cutting Tool Sharpener Name Role Phone Ismael Brown MD Primary Care Provider +1- [phone] Encounter Details Date Type Department Care Team (Late st Contact Info) Description 03/27/2021 Documentation Only [facility] [address] [place] [address] Eunice Anderson PA Social History [...] Visit [facility] [address] [place] [address] Rashid Rubalcava MD [address] [facility] [place] [address] 09/22/2024 9:50 AM EDT Office Visit [facility] [address] [place] [address] Rashid Rubalcava MD [address] [facility] [place] [address] documented as of this encounter Visit Diagnoses Not on filedocumented in this encounter Care Teams Cutting Tool Sharpener Relationship Specialty Start Date End Date Ismael Brown MD [address] [place] [address] PCP - General Internal Medicine 01/29/23 documented as of this encounter
== END 2024-07-21 12:24 | disposition home or self-care (01) ==
PROVIDERS: PCP Internal Medicine; Visit Provider Internal Medicine
DX: E11.9 Type 2 diabetes mellitus without complications (principal)

== ENCOUNTER → 2024-07-21 11:49 | Outpatient (BNVA) | payer MEDICARE, SELFPAY | PROVIDERS: PCP Internal Medicine; Visit Provider Internal Medicine | DX: E11.9 Type 2 diabetes mellitus without complications (principal); E03.9 Hypothyroidism, unspecified; E78.00 Pure hypercholesterolemia, unspecified; R35.1 Nocturia; I10 Essential (primary) hypertension | CPT/HCPCS: 83036; 96127; 99212 ==

== ENCOUNTER 2024-07-23 09:07 | Outpatient (REF) | payer MEDICARE, SELFPAY ==
--- OUTSIDE RECORDS SUMMARY | 2024-07-23 09:47 | XMS_ITS | Encounter Summary ---
Author Organization [facility] Address [address] [place] [address] Phone Care Team Providers Care Pastry Decorator Name Role Phone Ismael Brown MD Primary Care Provider +1- [phone] Encounter Details Date Type Department Care Team (Late st Contact Info) Description 09/11/2021 Documentation Only [facility] Of [address] [place] [address] Eunice Anderson PA Social History [...] Visit [facility] [address] [place] [address] Rashid Rubalcava MD [address] [facility] [place] [address] 09/22/2024 9:50 AM EDT Office Visit [facility] [address] [place] [address] Rashid Rubalcava MD [address] [facility] [place] [address] documented as of this encounter Visit Diagnoses Not on filedocumented in this encounter Care Teams Pastry Decorator Relationship Specialty Start Date End Date Ismael Brown MD [address] [place] [address] PCP - General Internal Medicine 01/29/23 documented as of this encounter
--- OUTSIDE RECORDS SUMMARY | 2024-07-23 09:47 | XMS_ITS | Encounter Summary ---
Author Organization [facility] Address [address] [place] [address] Phone Care Team Providers Care Architectural Draftsperson Name Role Phone Ismael Brown MD Primary Care Provider +1- [phone] Encounter Details Date Type Department Care Team (Late st Contact Info) Description 12/10/2023 Documentation Only [facility] [address] [place] [address] Rafael [place], [place] [address] [place] [address] Social History Tobacco Use Types [...] Visit [facility] [address] [place] [address] Rashid Rubalcava MD [address] [facility] [place] [phone] 09/22/2024 9:50 AM EDT Office Visit [facility] [address] [place] [address] Rashid Rubalcava MD [address] [place] [address] documented as of this encounter Visit Diagnoses Not on filedocumented in this encounter Care Teams Architectural Draftsperson Relationship Specialty Start Date End Date Ismael Brown MD [place] [address] PCP - General Internal Medicine 01/29/23 documented as of this encounter
--- OUTSIDE RECORDS SUMMARY | 2024-07-23 09:47 | XMS_ITS | Data Portability ---
Author Organization [place] - [facility], [address] Address [address] [place] [address] Assessment No assessment recorded. Plan of Treatment [...] Recorded Time 3 OC-DOT PHYSICAL completed ARMAAN ZNEA [place] - [facility] 08/22/2022 14:40:40 Imaging Results None recorded. [...] SNOMED-CT Code Diagnosis ICD10 Code Diagnosis Note [id number] [address] [place] [address] 08/03/2017 09:51:25 08/03/2017 11:59:17 [id number] [facility] [address] [place] [address] 03/01/2022 09:49:31 03/01/2022 12:05:59 [id number] [address] [place] [address] 01/25/2018 13:06:15 01/25/2018 14:12:42 [id number] [address] [facility] [address] [place] [address] 07/25/2018 12:40:42 07/25/2018 15:26:33 [id number] [address] [place] [address] 01/07/2017 09:43:52 01/07/2017 11:03:29 [id number] Jasmine Boswell MD [address] [place] [address] 08/22/2022 13:38:23 08/22/2022 16:41:19 Pants Closer license medical examination [id number] Z02.4 Physical examination [id number] 0005 Z02.4 Health Concerns Section Related Observation LastModified by Organization Detai ls LastModified Time None Recorded Concern Status LastModified by Organization Details LastModified Time None Recorded Advance Directives Directive None Recorded Payers Encounter Date Sequence Insurance Name Policy Number Policy Nazario Covered Member ID Nazario Member ID Guarantor Name 08/22/2022 ANNY-DOROTHEA Flores [id number] Wojciech Flores
--- OUTSIDE RECORDS SUMMARY | 2024-07-23 09:47 | XMS_ITS | Encounter Summary ---
Author Organization [facility] Address [address] [place] [address] Phone Care Team Providers Care Signal Tower Director Name Role Phone Ismael Brown MD Primary Care Provider +1- [phone] Encounter Details Date Type Department Care Team (Late st Contact Info) Description 08/09/2023 Documentation Only [facility] [address] [place] [address] Rafael [place], [place] [address] [place] [address] Social History Tobacco Use Types [...] [facility] [address] [place] [address] Rashid Rubalcava MD [address] [facility] [place] [phone] 09/22/2024 9:50 AM EDT Office Visit [facility] [address] [place] [address] Rashid Rubalcava MD [address] [place] [address] documented as of this encounter Visit Diagnoses Not on filedocumented in this encounter Care Teams Signal Tower Director Relationship Specialty Start Date End Date Ismael Brown [place] [address] PCP - General Internal Medicine 01/29/23 documented as of this encounter
--- OUTSIDE RECORDS SUMMARY | 2024-07-23 09:47 | XMS_ITS | Encounter Summary ---
Author Organization [facility] Address [address] [place] [address] Phone Care Team Providers Care Rice Dryer Mechanic Name Role Phone Ismael Brown MD Primary Care Provider +1- [phone] Encounter Details Date Type Department Care Team (Late st Contact Info) Description 10/04/2021 Documentation Only [facility] [address] [place] [address] Eunice Anderson PA Social History [...] Visit [facility] [address] [place] [address] Rashid Rubalcava MD [address] [facility] [place] [address] 09/22/2024 9:50 AM EDT Office Visit [facility] [address] [place] [address] Rashid Rubalcava MD [address] [facility] [place] [address] documented as of this encounter Visit Diagnoses Not on filedocumented in this encounter Care Teams Rice Dryer Mechanic Relationship Specialty Start Date End Date Ismael Brown MD [address] [place] [address] PCP - General Internal Medicine 01/29/23 documented as of this encounter
--- OUTSIDE RECORDS SUMMARY | 2024-07-23 09:47 | XMS_ITS | Clinical Summary ---
Author Organization [facility], Address [address] [place] [address] [place] [address] Phone Care Team Providers Care Senior Test Analyst Name Role Phone Ismael Brown MD Primary Care Provider +1- [phone] Allergies Active Allergy Reactions Criticality Noted Date [...] 2 (two) times a day Active multivitamin-ir lx-dpjvmdnq-pck ic acid (CENTRUM) chewable tablet Chew 1 tablet 1 (one) time each day Active Atkins-3 Fatty Acids (Fish Oil) 1000 MG capsule [...] Visit [facility] Of [address] [place] [address] Rashid Rubalcava MD Stage 3b chronic kidney disease (HCC) (Primary Dx) 06/18/2024 Refill [facility] Of [address] [place] [address] Elba Hall [place] 06/17/2024 Refill [facility] Of [address] [place] [address] Rashid Rubalcava MD 06/11/2024 Refill [facility] Of [address] [place] [address] Elba Hall [place] 06/11/2024 Refill [facility] [address] [place] [address] Elba Hall [place] 06/11/2024 Refill [facility] Of [address] [place] [address] Elba Hall [place] 04/22/2024 10:40 AM EST Office Visit [facility] [address] [facility] [address] Rashid Rubalcava MD Stage 3b chronic [...] Visit [facility] [address] [facility] [address] Rashid Rubalcava MD [address] [facility] [place] [phone] 09/22/2024 9:50 AM EDT Office Visit [facility] [address] [facility] [phone] Rashid Rubalcava MD [address] [facility] [place] [phone] Health Maintenance Due Date Last Done Comments [...] EST 06/11/2024 us Rashid Rubalcava MD LAB [id number] SOLICITED RESULTS Final Result [facility] [address], [address] [place] [address] * (ABNORMAL) Urinalysis, Complete w/reflex to Culture (06/11/2024 11:16 AM EST) Specific [place], Urine 1.022 1.005 - 1.030 [facility] pH Urine 6.0 5.0 - 7.5 [facility] Color, Urine Yellow Yellow [facility] [phone] Appearance Urine Cloudy(A) Clear [facility] [place] [phone] WBC Esterase Urine 2+(A) Negative [facility] Protein, Ur 1+(A) Negative/Tra ce [facility] Glucose, Ur 3+(A) Negative [facility] [phone] Ketones, Urine Negative Negative [facility] [place] Blood Urine 2+(A) Negative [facility] Bilirubin Urine Negative Negative [facility] [place] [phone] Urobilinogen Urine 0.2 0.2 - 1.0 mg/dL [facility] Nitrite, Urine Negative Negative [facility] Microscopic Examination See below: [facility] Comment:Microscopic was gladys cated and was performed. URINALYSIS REFLEX Comment [facility] Comment:This specimen has re flexed to a Urine Culture. Urine (Urine, Clean Catch) 06/11/2024 11:16 AM EST 06/11/2024 us Rashid Rubalcava MD LAB URINE ORDERABLES Final Re sult [facility] [address] [place] [address] * (ABNORMAL) Microscopic Examination (06/11/2024 11:16 AM EST) WBC, Urine >30(A) 0 - 5 /hpf [facility] RBC, Urine >30(A) 0 - 2 /hpf [facility] Squamous Epithelial, Urine None seen 0 - 10 /hpf [facility] Casts None seen None seen /lpf [facility] Bacteria, Urine None seen None seen/Few [facility] 06/11/2024 11:1 6 AM EST 06/11/2024 Rashid Rubalcava MD LAB MICROBIOLOGY - GENERAL OR DERABLES Final Result [facility] [address] [place] [address] * (ABNORMAL) Basic Metabolic Panel (06/11/2024 11:16 AM EST) Pathologist [facility] Glucose 244(H) 70 - 99 mg/dL [facility] BUN 43(H) 8 - 27 mg/dL [facility] Creatinine 2.05(H) 0.76 - 1.27 mg/dL [facility] eGFR CKD-EPI CR 2020 32(L) >59 mL/min/1.7 3 [facility] BUN/Creatinine Ratio 21 10 - 24 [facility] Sodium 136 134 - 144 mmol/L [facility] Potassium 4.6 3.5 - 5.2 mmol/L [facility] Bicarbonate (CO2) 21 20 - 29 mmol/L [facility] Calcium 8.8 8.6 - 10.2 mg/dL [facility] Chloride 96 96 - 106 mmol/L [facility] 06/11/2024 11:1 6 AM EST 06/11/2024 us Rashid Rubalcava MD LAB BLOOD ORDERABLES Final Re sult Performing Organization Address [facility]/ZIP Co de Phone Number [facility] [address] [place] [phone] * (ABNORMAL) Hemoglobin A1c (07/23/2022 2:06 PM EST) Hemoglobin A1C 6.9(H) (4.0-5.6) % [facility] Comment: MONITORING: In known diabetic patients, hemoglobin A1c targets should be discussed with health care provider. DIAGNOSTIC USE: ??The [place] Diabetes Association (ADA) and the World Health [...] Supplement 1 Testing performed or reported by [facility], a Service of [facility], [address] [place] [address] Payal Smith MD, Bistro Server [facility]# [id number] Blood (Blood, Venous) 07/23/2022 2:06 PM EST 07/23/2022 2:07 PM EST us Eunice MURRAY LAB BLOOD ORDERABLES Final Res ult Performing Organization Address [facility]/ZIP Co de Phone Number [facility] from Last 3 Months or Most Recently Relevant to Health Maintenance Insurance [employer] MEDICARE Care Teams Senior Test Analyst Relationship Specialty Start Date End Date Ismael Brown MD [facility] [place] [address] PCP - General Internal Medicine 01/29/23
--- OUTSIDE RECORDS SUMMARY | 2024-07-23 09:47 | XMS_ITS | Encounter Summary ---
Author Organization [facility] Address [address] [place] [address] Phone Care Team Providers Care Eyelet Punch Operator Name Role Phone Ismael Brown MD Primary Care Provider +1- [phone] Encounter Details Date Type Department Care Team (Late st Contact Info) Description 06/23/2024 9:50 AM EST Office Visit [facility] [address] [facility] [place] [phone] Rashid Rubalcava MD [address] [place] [address] [place] [address] Stage 3b chronic kidney disease (HCC) (Primary [...] time each day Donot crush or chew. shcvfrgyiaug-emhh-kxknyenv-folic acid (CENTRUM) chewable tablet Chew 1 tablet 1 (one) time each day omega-3 acid ethyl esters (LOVAZA) 1 g capsule Take 2 g by mouth 2 (two) times a day Cranberry Isles-3 Fatty Acids (Fish Oil) 1000 MG capsule [...] [facility] [address] [place] [address] Rashid Rubalcava MD [address] [place] [address] [place] [address] 09/22/2024 9:50 AM EDT Office Visit [facility] [address] [place] [place] [address] Rashid Rubaclava MD [address] [place] [address] [place] [phone] documented as of this encounter Visit Diagnoses Diagnosis Stage 3b chronic kidney disease (HCC)- Primary documented in this encounter Care Teams Eyelet Punch Operator Relationship Specialty Start Date End Date Ismael Brown MD [address] [place] [phone] PCP - General Internal Medicine 01/29/23 documented as of this encounter
--- OUTSIDE RECORDS SUMMARY | 2024-07-23 09:47 | XMS_ITS | Encounter Summary ---
Author Organization [facility] Address [address] [place] [address] Phone Care Team Providers Care Graphic Design Assistant Name Role Phone Ismael Brown MD Primary Care Provider +1- [phone] Encounter Details Date Type Department Care Team (Late st Contact Info) Description 08/23/2021 Documentation Only [facility] [address] [place] [address] Eunice Adnerson PA Social History Tobacco Use Types Packs/Day [...] Visit [facility] [address] [place] [address] Rashid Rubalcava MD [address] [facility] [place] [address] 09/22/2024 9:50 AM EDT Office Visit [facility] [address] [place] [address] Rashid Rubalcava MD [address] [facility] [place] [address] documented as of this encounter Visit Diagnoses Not on filedocumented in this encounter Care Teams Graphic Design Assistant Relationship Specialty Start Date End Date Ismael Brown MD [address] [place] [address] PCP - General Internal Medicine 01/29/23 documented as of this encounter
--- OUTSIDE RECORDS SUMMARY | 2024-07-23 09:47 | XMS_ITS | Encounter Summary ---
Author Organization [facility] Address [address] [place] [address] Phone Care Team Providers Care Fringe Knotter Name Role Phone Ismael Brown MD Primary Care Provider +1- [phone] Encounter Details Date Type Department Care Team (Late st Contact Info) Description 01/06/2022 Documentation Only [facility] Of [address] [place] [address] Eunice Anderson PA Social History [...] Visit [facility] Of [address] [place] [address] Rashid Rubalcava MD [address] [facility] [place] [address] 09/22/2024 9:50 AM EDT Office Visit [facility] Of [address] [place] [address] Rashid Rubalcava MD [address] [facility] [place] [address] documented as of this encounter Visit Diagnoses Not on filedocumented in this encounter Care Teams Fringe Knotter Relationship Specialty Start Date End Date Ismael Brown MD [address] [place] [address] PCP - General Internal Medicine 01/29/23 documented as of this encounter
--- OUTSIDE RECORDS SUMMARY | 2024-07-23 09:48 | XMS_ITS | Encounter Summary ---
Author Organization [facility] Address [address] [place] [address] Phone Care Team Providers Care Lead Etl Developer Name Role Phone Ismael Brown MD Primary Care Provider +1- [phone] Encounter Details Date Type Department Care Team (Late st Contact Info) Description 07/04/2021 Documentation Only [facility] Of [address] [place] [address] Eunice Anderson PA Social History [...] Visit [facility] [address] [place] [address] Rashid Rubalcava MD [address] [facility] [place] [address] 09/22/2024 9:50 AM EDT Office Visit [facility] [address] [place] [address] Rashid Rubalcava MD [address] [facility] [place] [address] documented as of this encounter Visit Diagnoses Not on filedocumented in this encounter Care Teams Lead Etl Developer Relationship Specialty Start Date End Date Ismael Brown MD [address] [place] [address] PCP - General Internal Medicine 01/29/23 documented as of this encounter
--- OUTSIDE RECORDS SUMMARY | 2024-07-23 09:48 | XMS_ITS | Encounter Summary ---
Author Organization [facility] Address [address] [place] [address] Phone Care Team Providers Care Jd Edwards Consultant Name Role Phone Ismael Brown MD Primary Care Provider +1- [phone] Encounter Details Date Type Department Care Team (Late st Contact Info) Description 04/04/2022 Documentation Only [facility] [address] [place] [address] Eunice Anderson PA Social History [...] Visit [facility] Of [address] [place] [address] Rashid Rubalcava MD [address] [facility] [place] [address] 09/22/2024 9:50 AM EDT Office Visit [facility] Of [address] [place] [address] Rashid Rubalcava MD [address] [facility] [place] [address] documented as of this encounter Visit Diagnoses Not on filedocumented in this encounter Care Teams Jd Edwards Consultant Relationship Specialty Start Date End Date Ismael Brown MD [address] [place] [address] PCP - General Internal Medicine 01/29/23 documented as of this encounter
--- OUTSIDE RECORDS SUMMARY | 2024-07-23 09:48 | XMS_ITS | Encounter Summary ---
Author Organization [facility] Address [address] [place] [address] Phone Care Team Providers Care Leather Leveler Name Role Phone Ismael Brown MD Primary Care Provider +1- [phone] Encounter Details Date Type Department Care Team (Late st Contact Info) Description 07/13/2022 Documentation Only [facility] Of [address] [place] [address] Eunice Anderson PA Social History [...] Visit [facility] Of [address] [place] [address] Rashid Rubalcava MD [address] [facility] [place] [address] 09/22/2024 9:50 AM EDT Office Visit [facility] [address] [place] [place] [address] Rashid Rubalcava MD [address] [facility] [place] [address] documented as of this encounter Visit Diagnoses Not on filedocumented in this encounter Care Teams Leather Leveler Relationship Specialty Start Date End Date Ismael Brown MD [address] [place] [address] PCP - General Internal Medicine 01/29/23 documented as of this encounter
--- OUTSIDE RECORDS SUMMARY | 2024-07-23 09:48 | XMS_ITS | Encounter Summary ---
Author Organization [facility] Address [address] [place] [address] Phone Care Team Providers Care Casing Runner Name Role Phone Ismael Brown MD Primary Care Provider +1- [phone] Encounter Details Date Type Department Care Team (Late st Contact Info) Description 04/19/2022 Documentation Only [facility] Of [address] [place] [address] Eunice Anderson PA Social History [...] [facility] Of [address] [place] [address] Rashid Rubalcava MD [address] [facility] [place] [address] 09/22/2024 9:50 AM EDT Office Visit [facility] Of [address] [place] [address] Rashid Rubalcava MD [address] [facility] [place] [address] documented as of this encounter Visit Diagnoses Not on filedocumented in this encounter Care Teams Casing Runner Relationship Specialty Start Date End Date Ismael Brown MD [address] [place] [address] PCP - General Internal Medicine 01/29/23 documented as of this encounter
--- OUTSIDE RECORDS SUMMARY | 2024-07-23 09:48 | XMS_ITS | Encounter Summary ---
Author Organization [facility] Address [address] [place] [address] Phone Care Team Providers Care Hay Chopper Name Role Phone Ismael Brown MD Primary Care Provider +1- [phone] Encounter Details Date Type Department Care Team (Late st Contact Info) Description 04/19/2022 Documentation Only [facility] Of [address] [place] [address] Eunice Anderson PA Social History [...] Visit [facility] Of [address] [place] [address] Rashid Rubalcava MD [address] [facility] [place] [address] 09/22/2024 9:50 AM EDT Office Visit [facility] Of [address] [place] [address] Rashid Rubalcava MD [address] [facility] [place] [address] documented as of this encounter Visit Diagnoses Not on filedocumented in this encounter Care Teams Hay Chopper Relationship Specialty Start Date End Date Ismael Brown MD [address] [place] [address] PCP - General Internal Medicine 01/29/23 documented as of this encounter
--- OUTSIDE RECORDS SUMMARY | 2024-07-23 09:48 | XMS_ITS | Encounter Summary ---
Author Organization [facility] Address [address] [place] [address] Phone Care Team Providers Care Maintenance Tech Name Role Phone Ismael Brown MD Primary Care Provider +1- [phone] Encounter Details Date Type Department Care Team (Late st Contact Info) Description 06/13/2022 Documentation Only [facility] Of [address] [place] [address] Eunice Anderson PA Social History [...] Visit [facility] Of [address] [place] [address] Rashid Rubalcava MD [address] [facility] [place] [address] 09/22/2024 9:50 AM EDT Office Visit [facility] Of [address] [place] [address] Rashid Rubalcava MD [address] [facility] [place] [address] documented as of this encounter Visit Diagnoses Not on filedocumented in this encounter Care Teams Maintenance Tech Relationship Specialty Start Date End Date Ismael Brown MD [address] [place] [address] PCP - General Internal Medicine 01/29/23 documented as of this encounter
--- OUTSIDE RECORDS SUMMARY | 2024-07-23 09:48 | XMS_ITS | Encounter Summary ---
Author Organization [facility] Address [address] [facility] [address] [place] [address] Phone Care Team Providers Care Supervisor Type Disk Quality Control Name Role Phone Ismael Brown MD Primary Care Provider +1- [phone] Reason for Visit * Reason Comments Med Refill Encounter Details Date Type Department Care Team (Late st Contact Info) Description 07/20/2022 Refill [facility] [address] [place] [address] Eunice Anderson, PA Social History Tobacco Use [...] Transplant Services [facility] [address] [facility] [place] [address] Rashid Rubalcava MD [address] [facility] [place] [address] 09/22/2024 9:50 AM EDT Office Visit [facility] [address] [facility] [place] [address] Rashid Rubalcava MD [address] [facility] [place] [address] documented as of this encounter Visit Diagnoses Not on filedocumented in this encounter Care Teams Supervisor Type Disk Quality Control Relationship Specialty Start Date End Date Ismael Brown MD [address] [place] [address] PCP - General Internal Medicine 01/29/23 documented as of this encounter
--- OUTSIDE RECORDS SUMMARY | 2024-07-23 09:48 | XMS_ITS | Encounter Summary ---
Author Organization [facility] Address [address] [place] [address] Phone Care Team Providers Care Police And Fire Dispatcher Name Role Phone Ismael Brown MD Primary Care Provider +1- [phone] Encounter Details Date Type Department Care Team (Late st Contact Info) Description 03/02/2022 Documentation Only [facility] Of [address] [place] [address] Eunice Anderson PA Social History [...] Visit [facility] Of [address] [place] [address] Rashid Rubalcava MD [address] [facility] [place] [address] 09/22/2024 9:50 AM EDT Office Visit [facility] Of [address] [place] [address] Rashid Rubalcava MD [address] [facility] [place] [address] documented as of this encounter Visit Diagnoses Not on filedocumented in this encounter Care Teams Police And Fire Dispatcher Relationship Specialty Start Date End Date Ismael Brown MD [address] [place] [address] PCP - General Internal Medicine 01/29/23 documented as of this encounter
--- OUTSIDE RECORDS SUMMARY | 2024-07-23 09:48 | XMS_ITS | Encounter Summary ---
Author Organization [facility] Address [address] [place] [address] Phone Care Team Providers Care Second Worker Name Role Phone Ismael Brown MD Primary Care Provider +1- [phone] Encounter Details Date Type Department Care Team (Late st Contact Info) Description 03/27/2021 Documentation Only [facility] Of [address] [place] [address] Eunice Anderson PA Social History [...] Visit [facility] Of [address] [place] [address] Rashid Rubalcava MD [address] [facility] [place] [address] 09/22/2024 9:50 AM EDT Office Visit [facility] Of [address] [place] [address] Rashid Rubalcava MD [address] [facility] [place] [address] documented as of this encounter Visit Diagnoses Not on filedocumented in this encounter Care Teams Second Worker Relationship Specialty Start Date End Date Ismael Brown MD [address] [place] [address] PCP - General Internal Medicine 01/29/23 documented as of this encounter
[2024-07-23 10:45] LABS: Alanine Aminotransferase 13 U/L (0-40); Anion Gap 13 (12-20); Aspartate Amino Transferase 26 U/L (5-37); Blood Urea Nitrogen 40 mg/dL (9-16); Calcium 8.9 mg/dL (8.4-10.2); Carbon Dioxide 27 mmol/L (22-29); Chloride 104 mmol/L (96-108); Cholesterol 100 mg/dL (<200); Estimated Glomerular Filt Rate 29; Glucose Fasting 184 mg/dL (60-99); HDL Cholesterol 20 mg/dL (>40); LDL Cholesterol Calculated 43 mg/dL (<100); Potassium 5.1 mmol/L (3.3-5.1); Sodium 139 mmol/L (135-145); Triglycerides 187 mg/dL (<150); Uric Acid 6.9 mg/dL (3.4-7.0)
[2024-07-23 10:59] LABS: Free T4 (Free Thyroxine) 1.05 ng/dL (0.71-1.85); PSA,Total (Free>4and<10) 1.92 ng/mL (0.00-4.00); Thyroid Stimulating Hormone 3.38 uIU/mL (0.32-4.0)
== END 2024-07-23 09:08 | disposition home or self-care (01) ==
LOC: HO.HMGCLDS 09:07
PROVIDERS: PCP Internal Medicine; Visit Provider Internal Medicine
DX: R35.1 Nocturia (principal); E78.00 Pure hypercholesterolemia, unspecified; I25.2 Old myocardial infarction; E03.9 Hypothyroidism, unspecified; E11.9 Type 2 diabetes mellitus without complications; I10 Essential (primary) hypertension; Z12.5 Encounter for screening for malignant neoplasm of prostate
CPT/HCPCS: 36415; 80048; 80061; 84153; 84439; 84443; 84450; 84460; 84550

== ENCOUNTER 2024-12-10 08:22 | Outpatient (AMB) | payer MEDICARE, SELFPAY ==
--- OUTSIDE RECORDS SUMMARY | 2024-12-10 08:34 | XMS_ITS | Data Portability ---
Author Organization [place] - [facility] Address [address] [place] [address] Assessment No assessment recorded. Plan of Treatment [...] Recorded Time 3 OC-DOT PHYSICAL completed ARMAAN FREITAS TERRI - [email or web address] [facility] 08/22/2022 14:40:40 Imaging Results None recorded. [...] SNOMED-CT Code Diagnosis ICD10 Code Diagnosis Note [id number] [address] [place] [address] 08/03/2017 09:51:25 08/03/2017 11:59:17 [id number] [facility] [address] [place] [address] 03/01/2022 09:49:31 03/01/2022 12:05:59 [id number] [address] [place] [address] 01/25/2018 13:06:15 01/25/2018 14:12:42 [id number] [address] [place] [address] 07/25/2018 12:40:42 07/25/2018 15:26:33 [id number] [address] [address] _[address] [place] [address] 01/07/2017 09:43:52 01/07/2017 11:03:29 [id number] Jasmine Boswell [place] [address] [place] [address] 08/22/2022 13:38:23 08/22/2022 16:41:19 Outreach Associate license medical examination [id number] Z02.4 Physical examination [phone] Z02.4 Health Concerns Section Related Observation LastModified by Organization Detai ls LastModified Time None Recorded Concern Status LastModified by Organization Details LastModified Time None Recorded Advance Directives Directive None Recorded Payers Insurance Date Sequence Insurance Name Policy Number Policy Nazario Covered Member ID Nazario Member ID Guarantor Name 08/22/2022 OC-ESCREEN Wojciech Flores [id number] Wojciech Flores 08/22/2022 DO NOT USE Wojciech Flores OC-PAY AT TIME OF SERVICE OC-PAY AT TIME OF SERVICE Wojciech Flores
--- OUTSIDE RECORDS SUMMARY | 2024-12-10 08:34 | XMS_ITS | Clinical Summary ---
Author Organization [facility], Address [address] [place] [address] [place] [address] Phone Care Team Providers Care Human Resource Management Instructor Name Role Phone Ismael Brown MD Primary Care Provider [phone] Allergies Active Allergy Reactions Criticality Noted Date Comments Metformin Diarrhea 06/08/2019 Penicillins 06/08/2019 Medications ASPIRIN 81 PO Take 81 mg by mouth 1 (one) time each day Active atorvastatin (LIPITOR) 40 MG tablet Take 40 mg by mouth every night 01/30/2018 Active omega-3 acid ethyl esters (LOVAZA) 1 g capsule Take 2 g by mouth 2 (two) times a day Active multivitamin-ir vy-yoqonfno-bsj ic acid (CENTRUM) chewable tablet Chew 1 tablet 1 (one) time each day Active [place]-3 Fatty Acids (Fish Oil) 1000 MG capsule [...] each day 90 tablet 3 01/08/2024 Active potassium citrate 10 MEQ (1080 MG) CR tablet Take 1 tablet (10 mEq total) by mouth in the morning and 1 tablet (10 mEq total) in the evening. Take with meals. Do not crush, chew, or split.. 180 tablet 3 06/18/2024 Active phenazopyridine (Pyridium) 200 MG tablet Take 1 tablet (200 mg total) by mouth if needed for bladder spasms 10 tablet 08/17/2024 Active losartan-hydroC HLOROthiazide (HYZAAR) 100-25 MG per tablet TAKE 1 TABLET BY MOUTH 1 TIME EACH DAY. 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 Resolved Problems Problem Noted Date Diagnosed Date Resolved Date Renal disorder due to type 2 diabetes mellitus 06/08/2019 09/07/2019 Cardiac murmur 09/05/2020 Hypercholesterolemia 021 Hypothyroidism 09/05/2020 Encounters Date Type Department Care Team Description 10/13/2024 Refill [facility] [address] [place] [address] Rashid Rubalcava MD 09/22/2024 9:50 AM EDT Office Visit [facility] [address] [place] [address] Rashid Rubalcava MD Stage 3b chronic kidney disease (HCC) (Primary Dx); Viral hepatitis B, not otherwise specified 09/22/2024 Documentation Only [facility] [address] [place] [address] Mary August from Last 3 Months Immunizations Immunization Administration Dates Next Due Influenza Vaccine, Quadrivalent, [...] Care Team (Late st Contact Info) Description 12/24/2024 12:00 PM EDT Office Visit [facility] [place], [address] [place] [phone] Rashid Rubalcava MD [address] [place] [phone] Health Maintenance Due Date Last Done Comments Diabetes: Ophthalmology Exam 06/08/2019 Diabetes: Pedal Pulse Checked 06/08/2019 Diabetes: Sensory Foot Exam 06/08/2019 Diabetes: Visual Foot Exam 06/08/2019 Diabetes: Hemoglobin A1C 10/20/2022 023, 12/05/2021, 07/22/2021, Additional history exists Influenza Vaccine (#1) 2025 0, 02/24/2020, 03/25/2018, Additional history exists Pneumococcal Vaccine: 50+ Years Completed 09/20/2018, 09/21/2015, 04/01/2008 Pneumococcal Vaccine: Peds (0 to 5 Years) and At-Risk Patients (6 to 49 Years) Discontinued 09/20/2018, 09/21/2015, 04/01/2008 Hepatitis B Vaccine Aged Out 09/22/2024 No longe r eligible based on patient's age to complete this topic Procedures Procedure Name Priority Date/Time Associated Diagnosis Comments HEPATITIS B SURFACE ANTIGEN Routine 12/07/2024 11:05 AM EDT Stage 3b chronic kidney disease (HCC) Viral hepatitis B, not otherwise specified HEPATITIS B SURFACE ANTIBODY QUANT Routine 12/07/2024 11:05 AM EDT Stage 3b chronic kidney disease (HCC) Viral hepatitis B, not otherwise specified FERRITIN Routine 12/07/2024 11:04 AM EDT Stage 3b chronic kidney disease (HCC) IRON PANEL (FE, TIBC, TSAT) Routine 12/07/2024 11:04 AM EDT Stage 3b chronic kidney disease (HCC) CBC Routine 12/07/2024 11:04 AM EDT Stage 3b chronic kidney disease (HCC) URINE ALBUMIN / CREATININE RATIO Routine 12/07/2024 11:04 AM EDT Stage 3b chronic kidney disease (HCC) URINALYSIS WITH MICROSCOPIC Routine 12/07/2024 11:04 AM EDT Stage 3b chronic kidney disease (HCC) VITAMIN D 25 HYDROXY Routine 12/07/2024 11:04 AM EDT Stage 3b chronic kidney disease (HCC) PTH, INTACT Routine 12/07/2024 11:04 AM EDT Stage 3b chronic kidney disease (HCC) ALBUMIN Routine 12/07/2024 11:04 AM EDT Stage 3b chronic kidney disease (HCC) PHOSPHATE ( PHOSPHORUS) Routine 12/07/2024 11:04 AM EDT Stage 3b chronic kidney disease (HCC) MAGNESIUM Routine 12/07/2024 11:04 AM EDT Stage 3b chronic kidney disease (HCC) BASIC METABOLIC PANEL Routine 12/07/2024 11:04 AM EDT Stage 3b chronic kidney disease (HCC) MICROSCOPIC EXAMINATION - DO NOT USE Routine 12/07/2024 11:04 AM EDT HEMOGLOBIN A1C Routine 07/23/2022 2:06 PM EST Stage 3b chronic kidney disease (HCC) from Last 3 Months or Most Recently Relevant to Health Maintenance Results * (ABNORMAL) Hepatitis B surface antibody (12/07/2024 11:05 AM EDT) Pathologist [facility] Hepatitis B Surface Ab <3.5(L) Immunity>1 0 mIU/mL [facility] Comment: Status of Immunity Anti-HBs Level Inconsistent with Immunity 0.0 - 10.0 Consistent with Immunity >10.0 Blood specimen (specimen) Venous blood / Unknown 12/07/2024 11:05 AM EDT 12/07/2024 Rashid Rubalcava MD LAB BLOOD ORDERABLES Final Re sult Performing Organization Address City/[facility]/ZIP Co de Phone Number [facility] [address], [address] [place] [phone] * Hepatitis B surface antigen (12/07/2024 11:05 AM EDT) Pathologist [facility] Hep B Surface Ag Negative Negative [facility] [place] Blood specimen (specimen) Venous blood / Unknown 12/07/2024 11:05 AM EDT 12/07/2024 Rashid Rubalcava MD LAB BLOOD ORDERABLES Final Re sult [facility] [address], [address] [place] [phone] * (ABNORMAL) Microscopic Examination (12/07/2024 11:04 AM EDT) Pathologist [facility] WBC, Urine >30(A) 0 - 5 /hpf [facility] [place] RBC, Urine >30(A) 0 - 2 /hpf [facility] Squamous Epithelial, Urine 0-10 0 - 10 /hpf [facility] Casts None seen None seen /lpf [facility] Bacteria, Urine Few None seen/Few [facility] 12/07/2024 11:0 4 AM EDT 12/07/2024 Rashid Rubalcava MD LAB MICROBIOLOGY - GENERAL OR DERABLES Final Result Performing Organization Address City/[facility]/ZIP Co de Phone Number [facility] [place] [address] [place] [address] * (ABNORMAL) Iron Panel (Fe, TIBC, TSAT) (12/07/2024 11:04 AM EDT) TIBC 306 250 - 450 ug/dL [facility] UIBC 263 111 - 343 ug/dL [facility] Iron 43 38 - 169 ug/dL [facility] Iron Saturation (TSat) 14(L) 15 - 55 % [facility] Blood specimen (specimen) Venous blood / Unknown 12/07/2024 11:04 AM EDT 12/07/2024 Rashid Rubalcava MD LAB BLOOD ORDERABLES Final Re sult [facility] [address] [place] [address] * (ABNORMAL) Urine Albumin / Creatinine Ratio (12/07/2024 11:04 AM EDT) Creatinine, Ur 109.9 Not Estab. mg/dL [facility] [place] Albumin, Urine 253.8 Not Estab. ug/mL [facility] Albumin/Creatin ine Ratio 231(H) 0 - 29 mg/g creat [facility] Comment: Normal: 0 - 29 Moderately increased: 30 - 300 Severely increased: >300 Urine specimen (specimen) Urine specimen obtained by clean catch procedure / Unknown 12/07/2024 11:04 AM EDT 12/07/2024 Rashid Rubalcava MD LAB URINE ORDERABLES Final Re sult Performing Organization Address City/[facility]/ZIP Co de Phone Number [facility] [address] [place] [address] * (ABNORMAL) Vitamin D 25 Hydroxy (12/07/2024 11:04 AM EDT) Vitamin D, 25-OH, Total 29.4(L) 30.0 - 100.0 ng/mL [facility] Comment: Vitamin D deficiency has been defined by the [place] [employer] and an Endocrine Society practice guideline as a level of serum 25-OH vitamin D less than 20 ng/mL (1,2). The Endocrine Society went on to further define vitamin D insufficiency as a level between 21 and 29 ng/mL (2). 1. IOM ([place] [employer]). 2010. Dietary reference intakes for calcium and D. [place]: The National Academies Press. 2. Yolanda MF, Akilah HENRIQUEZ, Shanita HANDLEY, et al. Evaluation, treatment, and prevention of vitamin D deficiency: an Endocrine Society clinical practice guideline. JCEM. 2010; 96(7):1911-30. Blood specimen (specimen) Venous blood / Unknown 12/07/2024 11:04 AM EDT 12/07/2024 Rashid Rubalcava MD LAB BLOOD ORDERABLES Final Re sult [facility] [address] [place] [address] * (ABNORMAL) Urinalysis with microscopic (12/07/2024 11:04 AM EDT) Specific [place], Urine 1.019 1.005 - 1.030 [facility] pH Urine 6.0 5.0 - 7.5 [facility] Color, Urine Yellow Yellow [facility] Appearance Urine Turbid(A) Clear [facility] [place] WBC Esterase Urine 2+(A) Negative [facility] [phone] Protein, Ur 2+(A) Negative/Tra ce [facility] Glucose, Ur 2+(A) Negative [facility] Ketones, Urine Negative Negative [facility] [place] Blood Urine 2+(A) Negative [facility] [place] Bilirubin Urine Negative Negative [facility] [place] [phone] Urobilinogen Urine 0.2 0.2 - 1.0 mg/dL [facility] Nitrite, Urine Negative Negative [facility] [place] Microscopic Examination See below: [facility] Comment:Microscopic was gladys cated and was performed. Urine specimen (specimen) Urine specimen obtained by clean catch procedure / Unknown 12/07/2024 11:04 AM EDT 12/07/2024 us Rashid Rubalcava MD LAB URINE ORDERABLES Final Re sult [facility] [address] [place] [address] * (ABNORMAL) CBC (12/07/2024 11:04 AM EDT) WBC 12.4(H) 3.4 - 10.8 x10E3/uL [facility] RBC 4.32 4.14 - 5.80 x10E6/uL [facility] Hemoglobin 11.5(L) 13.0 - 17.7 g/dL [facility] Hematocrit 37.8 37.5 - 51.0 % [facility] MCV 88 79 - 97 fL [facility] MCH 26.6 26.6 - 33.0 pg [facility] MCHC 30.4(L) 31.5 - 35.7 g/dL [facility] RDW 17.0(H) 11.6 - 15.4 % [facility] Platelets 301 150 - 450 x10E3/uL [facility] Blood specimen (specimen) Venous blood / Unknown 12/07/2024 11:04 AM EDT 12/07/2024 Rashid Rubalcava MD LAB BLOOD ORDERABLES Final Re sult [facility] [address] [place] [address] * Phosphorus (12/07/2024 11:04 AM EDT) Phosphorus 4.0 2.8 - 4.1 mg/dL [facility] Blood specimen (specimen) Venous blood / Unknown 12/07/2024 11:04 AM EDT 12/07/2024 Rashid Rubalcava MD LAB BLOOD ORDERABLES Final Re sult [facility] [address] [place] [address] * PTH, Intact (12/07/2024 11:04 AM EDT) PTH 53 15 - 65 pg/mL [facility] Blood specimen (specimen) Venous blood / Unknown 12/07/2024 11:04 AM EDT 12/07/2024 Rashid Rubalcava MD LAB BLOOD ORDERABLES Final Re sult [facility] [address] [place] [address] * (ABNORMAL) Magnesium (12/07/2024 11:04 AM EDT) Magnesium 2.4(H) 1.6 - 2.3 mg/dL [facility] Blood specimen (specimen) Venous blood / Unknown 12/07/2024 11:04 AM EDT 12/07/2024 us Rashid Rubalcava MD LAB BLOOD ORDERABLES Final Re sult Performing Organization Address City/[facility]/ZIP Co de Phone Number [facility] [place] [address] [place] [address] * Ferritin (12/07/2024 11:04 AM EDT) Ferritin 88 30 - 400 ng/mL [facility] Blood specimen (specimen) Venous blood / Unknown 12/07/2024 11:04 AM EDT 12/07/2024 us Rashid Rubalcava MD LAB BLOOD ORDERABLES Final Re sult Performing Organization Address City/[facility] Co de Phone Number [facility] [place] [address] [place] [address] * Albumin (12/07/2024 11:04 AM EDT) Albumin 4.1 3.7 - 4.7 g/dL [facility] Blood specimen (specimen) Venous blood / Unknown 12/07/2024 11:04 AM EDT 12/07/2024 Rashid Rubalcava MD LAB BLOOD ORDERABLES Final Re sult [facility] [address] [place] [address] * (ABNORMAL) Basic Metabolic Panel (12/07/2024 11:04 AM EDT) Glucose 172(H) 70 - 99 mg/dL [facility] BUN 60(H) 8 - 27 mg/dL [facility] Creatinine 2.70(H) 0.76 - 1.27 mg/dL [facility] eGFR CKD-EPI CR 2020 23(L) >59 mL/min/1.7 3 [facility] BUN/Creatinine Ratio 22 10 - 24 [facility] Sodium 134 134 - 144 mmol/L [facility] Potassium 5.1 3.5 - 5.2 mmol/L [facility] Chloride 99 96 - 106 mmol/L [facility] Bicarbonate (CO2) 18(L) 20 - 29 mmol/L [facility] Calcium 8.6 8.6 - 10.2 mg/dL [facility] Blood specimen (specimen) Venous blood / Unknown 12/07/2024 11:04 AM EDT 12/07/2024 Rashid Rubalcava MD LAB BLOOD ORDERABLES Final Re sult [facility] [address] [place] [address] * (ABNORMAL) Hemoglobin A1c (07/23/2022 2:06 PM EST) Hemoglobin A1C 6.9(H) (4.0-5.6) % [facility] Comment: MONITORING: In known diabetic patients, hemoglobin A1c targets should be discussed with health care provider. DIAGNOSTIC USE: The [place] Diabetes Association (ADA) and the World Health [...] Supplement 1 Testing performed or reported by [facility], a Service of [facility], [address] [place] [address] Payal Smith MD, Improvement Analyst [facility]# [id number] Blood specimen (specimen) Venous blood / Unknown 07/23/2022 2:06 PM EST 07/23/2022 2:07 PM EST us Eunice MURRAY LAB BLOOD ORDERABLES Final Res ult [facility] from Last 3 Months or Most Recently Relevant to Health Maintenance Insurance [employer] Medicare Care Teams Human Resource Management Instructor Relationship Specialty Start Date End Date Ismael Brown MD [address] [place] [id number] PCP - General Internal Medicine 01/29/23
--- NOTE | 2024-12-10 08:37 | A.OFFPC_ITS ---
Vital Signs 12/10/24 08:47 Height 5 ft 8 in Weight 205 lb BMI 31.2 BP 100/52 L Blood Pressure Location Lt brachial Position Sitting Respiration 17 Pulse 61 Pulse Source Pulse Oximeter Temp 98.0 F Temp Source Oral Pulse Oximetry (%) 97 Oxygen Delivery Method Room Air Intake Visit Reasons: Annual PE Intake Note: Pt is here today for his PE Allergies Penicillins Allergy (Severe, Verified 12/10/24 09:26) Anaphylaxis metformin Adverse Reaction (Verified 12/10/24 09:26) Diarrhea Medication List - Last Reconciled 12/10/24 by Rosa Elena Brown MD allopurinol 100 mg PO DAILY aspirin (Adult Low Dose Aspirin) 81 mg PO DAILY atorvastatin 40 mg PO DAILY dapagliflozin propanediol (Farxiga) 10 mg PO DAILY levothyroxine (Synthroid) 150 mcg PO DAILY losartan-hydrochlorothiazide 100-25 mg 1 tab PO DAILY metoprolol succinate ER 25 mg PO DAILY [[employer] Krill oil PO] pioglitazone 30 mg PO DAILY potassium citrate ER PO sitagliptin phosphate (Januvia) 50 mg PO DAILY Tobacco use date assessed: 12/10/24 Fall risk assessment: No Falls in past year Last assessed Fall Risk: 12/10/24 Dental Screening Dental Screen Date: 12/10/24 Did you have a dental visit in the last 12 months?: Yes Did you have a dental problem in the last 6 months where you did not have access to dental care?: No Was dental information given to patient?: Patient has dentist [facility] Medical History Kidney stone on right side Diabetic nephropathy Obstructive sleep apnea on CPAP Essential hypertension Hypercholesterolemia History of non-ST elevation myocardial infarction (NSTEMI) Chronic kidney disease, stage 3 Aortic stenosis Acquired hypothyroidism Type 2 diabetes mellitus without complication, without long-term current use of insulin Surgical History S/P excision of lipoma Social History Housing: House Patient Tobacco Use Status: Former Tobacco user e-Cigarette/Vaping Use: Never Used service: Yes Current occupational status: employed Cognitive needs: No Hearing needs: Yes Vision needs: Yes Questionnaire PHQ-9 Over the last 2 weeks, how often have you been bothered by any of the following problems? 4. Feeling tired or having little energy: several days 5. Poor appetite or overeating: not at all 6. Feeling bad about yourself - or that you are a failure or have let yourself or your family down: not at all 7. Trouble concentrating on things, such as reading the newspaper or watching television: not at all 8. Moving or speaking so slowly that other people could have noticed. Or the opposite - being so fidgety or restless that you have been moving around a lot more than usual: not at all 9. Thoughts that you would be better off or of hurting yourself in some way: not at all Source: Developed by Drs. Odell Hawkins, Pretty Mackenzie, Chris Bernal and colleagues, with an educational jp from [employer]. Thrive Questionnaire Date Thrive assessed: 07/15/24 I am a: Patient What is your living situation today?: I have a steady place to live Within the past 12 months, did the food you bought not last and you didn't have the money to get more?: Never true Within the past 12 months, did you worry whether your food would run out before you got money to buy more?: Never true Do you have trouble paying for medicines?: No Do you have trouble getting transportation to medical appointments?: No Do you have trouble paying your heating and electricity bill?: No Do you have trouble taking care of your child, family member or friend?: No Do you have trouble with day-to-day activities such as bathing, preparing meals, shopping, managing finances, etc.?: No Are you currently unemployed and looking for a job?: Yes Are you interested in more education?: No Please select the resources that you would like help with: None Currently or been in a relationship where the following occur: No concerns reported THRIVE Score: 0 KAY-7 AMB Questionnaire KAY-7 Date KAY - 7 assessed: 07/21/24 Source: Developed by Drs. Odell Hawkins, Pretty Mackenzie, Chris Bernal and colleagues, with an educational jp from [employer]. Review of Systems Eyes Details: sees Dr Leslie , has transition lenses Card Details: Sees Dr. Tariq at [facility] Cardiology Physical exam (Primary Care) Vital Signs: Last Vital Signs Temp 98.0 F 12/10/24 08:47 Pulse 61 12/10/24 08:47 Resp 17 12/10/24 08:47 BP 100/52 L 12/10/24 08:47 Pulse Ox 97 12/10/24 08:47 Oxygen Delivery Method Room Air 12/10/24 08:47 BMI result Body Mass Index 31.2 Tobacco/Smoking Status: Tobacco use Status Tobacco use date assessed 12/10/24 12/10/24 08:38 Patient Tobacco Use Status Former Tobacco user 12/10/24 08:38 e-Cigarette/Vaping Use Never Used 12/10/24 08:38 Thrive Assessment: Date of Thrive Assessment Date Thrive assessed 07/15/24 12/10/24 08:38 Currently or been in a relationship where the following occur: No concerns reported Results AMB Hemoglobin A1c AMB Hemoglobin A1c 6.6 % Last Edit by Love Mosqueda CMA on 12/10/24 09:08 Results Reviewed Results Reviewed: Laboratory Last Values Hgb A1c (Clinic) 6.6 % (4.0-6.0) H 12/10/24 09:06 Laboratory Tests 07/21/24 13:00 Hgb A1c (Clinic) 6.8 H Name: Wojciech Flores Age/Sex: 79/M : 1945 Unit#: [id number] Attend Dr: Rosa Elena Brown MD Re07/23/24 Status: DEP REF Location: [facility] Disch: SPEC : [id number] EMILY: 07/23/24 STATUS: COMP REQ : [id number] RECD: 07/23/[address]: Rosa Elena Brown MD COMP: 07/23/24 ENTERED: 07/23/[address]: ORDERED: Met Prof Fast, Uric, AST, ALT, Lipid Panel, Free T4, TSH Test Result Flag Reference Sodium 139 135-145 mmol/L Potassium 5.1 3.3-5.1 mmol/L CL 104 96-108 mmol/L CO2 27 22-29 mmol/L Gap 13 12-20 BUN 40 H 9-16 mg/dL Creat 2.16 H 0.5-1.4 mg/dL eGFR 29 Chronic Kidney Disease: Estimated GFR < 60 mL/min/1.73m2 Severe Kidney Disease: Estimated GFR < 15 mL/min/1.73m2 FBS 184 H 60-99 mg/dL A fasting glucose of 126 mg/dl or greater on more than one occasion is considered diagnostic of diabetes. Uric Acid 6.9 3.4-7.0 mg/dL CA 8.9 8.4-10.2 mg/dL AST (GOT) 26 5-37 U/L ALT (GPT) 13 0-40 U/L Triglyceride 187 H <150 mg/dL Desirable Triglyceride: less than 150 mg/dL Borderline High Triglyceride 150-199 mg/dL High Triglyceride: 200-499 mg/dL Very High Triglyceride: greater than or equal to 5OO mg/dL Cholesterol 100 <200 mg/dL Desirable Cholesterol: less than 200 mg/dL Borderline High Cholesterol: 200-239 mg/dL High Cholesterol: greater than 239 mg/dL LDL Calculated 43 <100 mg/dL Desirable LDL: less than 100 mg/dL Near Optimal/Above Optimal LDL: 110-129 mg/dL Borderline High LDL: 130-159 mg/dL High LDL: 160-189 mg/dL Very High LDL: greater than or equal to 190 mg/dL HDL 20 L >40 mg/dL Desirable HDL: greater than 40 mg/dL Note: This HDL assay may give artificially low results in patients with liver disease. Free T4 1.05 0.71-1.85 ng/dL TSH 3rd Gen. 3.38 0.32-4.0 uIU/mL Note: A sustained TSH level above 2.5 uIU/mL may warrant further investigation. Coding Level of Care Code Est Pt Prev Care >65y(34860) Diagnoses Annual visit for general adult medical examination with abnormal findings Z00.01 Type 2 diabetes mellitus without complication, without long-term current use of insulin E11.9 Acquired hypothyroidism E03.9 Aortic valve stenosis, etiology of cardiac valve disease unspecified I35.0 Cardiac valve disease etiology: etiology unspecified Chronic kidney disease, stage 3 N18.30 Hypercholesterolemia E78.00 Essential hypertension I10 Obstructive sleep apnea on CPAP G47.33 Encounter for counseling regarding advance directives Z71.89 Assessment & Plan Assessment & Plan (1) Annual visit for general adult medical examination with abnormal findings: Code(s): Z00.01 - Encounter for general adult medical examination with abnormal findings Plan: Will check appropriate labs. Recommended dental visit every 6 months and regular eye exams, sees Dr. Leslie yearly. Take adequate calcium in diet and vitamin-D 3 at 2000 IU per cap once a day, in addition to weight-bearing exercises to help maintain good muscle tone and weight control. Up-to-date with his vaccines. (2) Type 2 diabetes mellitus without complication, without long-term current use of insulin: Code(s): E11.9 - Type 2 diabetes mellitus without complications Category: Medical Plan: Hemoglobin A1c today is now is at 6.6%. Will continue on Farxiga, Januvia and pioglitazone at the same dose. Reinforced importance of following a diabetic diet and getting regular exercise. Up-to-date with his diabetes retinopathy screening, sees Dr. Leslie (3) Acquired hypothyroidism: Code(s): E03.9 - Hypothyroidism, unspecified Category: Medical Plan: Ordered TSH and free T4 to be done today. Currently on levothyroxine 150 mcg daily (4) Aortic stenosis: Comment: Has echocardiogram 01/26/2020-mild aortic stenosis seen, ordered by Dr. Jeronimo Ibrahim Code(s): I35.0 - Nonrheumatic aortic (valve) stenosis Category: Medical Qualifiers: Cardiac valve disease etiology: etiology unspecified Qualified Code(s): I35.0 - Nonrheumatic aortic (valve) stenosis Plan: Followed by Dr. Tariq, as per patient had a recent echocardiogram done, no change, no indication for surgery at this time (5) Chronic kidney disease, stage 3: Comment: sees Dr Rashid loya- [facility] [place] Code(s): N18.30 - Chronic kidney disease, stage 3 unspecified Category: Medical Plan: Followed by Nephrology, Dr. Loya (6) Hypercholesterolemia: Code(s): E78.00 - Pure hypercholesterolemia, unspecified Category: Medical Plan: Fasting lipid panel ordered today. Currently on atorvastatin 40 mg daily (7) Essential hypertension: Code(s): I10 - Essential (primary) hypertension Category: Medical Plan: Blood pressure at goal of less than 130/80. Currently on losartan-HCTZ 100-25 mg daily and metoprolol succinate ER 25 mg once a day. Reinforced importance of following a low sodium diet, getting regular exercise, and lowering stress levels. (8) Obstructive sleep apnea on CPAP: Code(s): G47.33 - Obstructive sleep apnea (adult) (pediatric) Category: Medical Plan: Compliant with using a CPAP (9) Encounter for counseling regarding advance directives: Code(s): Z71.89 - Other specified counseling Plan: Initiated the conversation about Advanced Directives. Advanced Directives help patients prepare for current and future decisions about their medical treatment and place of care. Discussed with patient that it is a process where a patients current condition and prognosis are reviewed, their wishes for information regarding their illness are elicited, and likely medical dilemmas are presented and options discussed. Healthcare proxy form and MOLST form completed today. These forms can be amended as needed, reviewed yearly and make changes as needed Orders: Orders AMB Hemoglobin A1c Today E11.9 - Type 2 diabetes mellitus without complications Free T4 (Free Thyroxine) Today E03.9 - Hypothyroidism, unspecified, E11.9 - Type 2 diabetes mellitus without complications, E78.00 - Pure hypercholesterolemia, unspecified, G47.33 - Obstructive sleep apnea (adult) (pediatric), I10 - Essential (primary) hypertension, I35.0 - Nonrheumatic aortic (valve) stenosis, N18.30 - Chronic kidney disease, stage 3 unspecified, Z00.01 - Encounter for general adult medical examination with abnormal findings, Z71.89 - Other specified counseling Uric Acid Today E03.9 - Hypothyroidism, unspecified, E11.9 - Type 2 diabetes mellitus without complications, E78.00 - Pure hypercholesterolemia, unspecified, G47.33 - Obstructive sleep apnea (adult) (pediatric), I10 - Essential (primary) hypertension, I35.0 - Nonrheumatic aortic (valve) stenosis, N18.30 - Chronic kidney disease, stage 3 unspecified, Z00.01 - Encounter for general adult medical examination with abnormal findings, Z71.89 - Other specified counseling Alanine Aminotransferase Today E03.9 - Hypothyroidism, unspecified, E11.9 - Type 2 diabetes mellitus without complications, E78.00 - Pure hypercholesterolemia, unspecified, G47.33 - Obstructive sleep apnea (adult) (pediatric), I10 - Essential (primary) hypertension, I35.0 - Nonrheumatic aortic (valve) stenosis, N18.30 - Chronic kidney disease, stage 3 unspecified, Z00.01 - Encounter for general adult medical examination with abnormal findings, Z71.89 - Other specified counseling Aspartate Amino Transferase Today E03.9 - Hypothyroidism, unspecified, E11.9 - Type 2 diabetes mellitus without complications, E78.00 - Pure hypercholesterolemia, unspecified, G47.33 - Obstructive sleep apnea (adult) (pediatric), I10 - Essential (primary) hypertension, I35.0 - Nonrheumatic aortic (valve) stenosis, N18.30 - Chronic kidney disease, stage 3 unspecified, Z00.01 - Encounter for general adult medical examination with abnormal findings, Z71.89 - Other specified counseling AMB Hemoglobin A1c Today E11.9 - Type 2 diabetes mellitus without complications Thyroid Stimulating Hormone Today E03.9 - Hypothyroidism, unspecified, E11.9 - Type 2 diabetes mellitus without complications, E78.00 - Pure hypercholesterolemia, unspecified, G47.33 - Obstructive sleep apnea (adult) (pediatric), I10 - Essential (primary) hypertension, I35.0 - Nonrheumatic aortic (valve) stenosis, N18.30 - Chronic kidney disease, stage 3 unspecified, Z00.01 - Encounter for general adult medical examination with abnormal findings, Z71.89 - Other specified counseling Lipid Panel Today E03.9 - Hypothyroidism, unspecified, E11.9 - Type 2 diabetes mellitus without complications, E78.00 - Pure hypercholesterolemia, unspecified, G47.33 - Obstructive sleep apnea (adult) (pediatric), I10 - Essential (primary) hypertension, I35.0 - Nonrheumatic aortic (valve) stenosis, N18.30 - Chronic kidney disease, stage 3 unspecified, Z00.01 - Encounter for general adult medical examination with abnormal findings, Z71.89 - Other specified counseling Basic Metabolic Panel Fasting Today E03.9 - Hypothyroidism, unspecified, E11.9 - Type 2 diabetes mellitus without complications, E78.00 - Pure hypercholesterolemia, unspecified, G47.33 - Obstructive sleep apnea (adult) (pediatric), I10 - Essential (primary) hypertension, I35.0 - Nonrheumatic aortic (valve) stenosis, N18.30 - Chronic kidney disease, stage 3 unspecified, Z00.01 - Encounter for general adult medical examination with abnormal findings, Z71.89 - Other specified counseling
[2024-12-10 08:47] VITALS: BP 100/52; PULSE 61; RESP 17; TEMP 36.7; O2SAT 97; BMI 31.2
== END 2024-12-10 09:36 | disposition home or self-care (01) ==
LOC: HO.HMCC 08:23
PROVIDERS: PCP Internal Medicine; Visit Provider Internal Medicine
DX: E11.9 Type 2 diabetes mellitus without complications (principal)

== ENCOUNTER → 2024-12-10 08:22 | Outpatient (BNVA) | payer MEDICARE, SELFPAY | PROVIDERS: PCP Internal Medicine; Visit Provider Internal Medicine | DX: Z00.01 Encounter for general adult medical examination with abnormal findings (principal); E11.22 Type 2 diabetes mellitus with diabetic chronic kidney disease; I12.9 Hypertensive chronic kidney disease with stage 1 through stage 4 chronic kidney disease, or unspecified chronic kidney disease; N18.30 Chronic kidney disease, stage 3 unspecified; E03.9 Hypothyroidism, unspecified; I35.0 Nonrheumatic aortic (valve) stenosis; G47.33 Obstructive sleep apnea (adult) (pediatric); I25.10 Atherosclerotic heart disease of native coronary artery without angina pectoris; I25.2 Old myocardial infarction; E78.00 Pure hypercholesterolemia, unspecified; Z71.89 Other specified counseling; Z99.89 Dependence on other enabling machines and devices | CPT/HCPCS: 83036; 96127; 99397; 99497 ==

== ENCOUNTER 2024-12-21 07:52 | Outpatient (REF) | payer MEDICARE, SELFPAY ==
--- OUTSIDE RECORDS SUMMARY | 2024-12-21 07:56 | XMS_ITS | Clinical Summary ---
Author Organization [facility], Address [address] [place] [address] [place] [address] Phone Care Team Providers Care Biological Technical Officer Name Role Phone Ismael Brown MD Primary Care Provider [phone]- [phone] Allergies Active Allergy Reactions Criticality Noted Date Comments Metformin Diarrhea 06/08/2019 Penicillins 06/08/2019 Medications ASPIRIN 81 PO Take 81 mg by mouth 1 (one) time each day Active atorvastatin (LIPITOR) 40 MG tablet Take 40 mg by mouth every night 01/30/2018 Active omega-3 acid ethyl esters (LOVAZA) 1 g capsule Take 2 g by mouth 2 (two) times a day Active multivitamin-ir bu-huogntdu-ugk ic acid (CENTRUM) chewable tablet Chew 1 tablet 1 (one) time each day Active [place]-3 Fatty Acids (Fish Oil) 1000 MG capsule [...] Refill [facility] [address] [place] [address] Rashid Rubalcava MD 09/22/2024 9:50 AM EDT Office Visit [facility] [address] [place] [address] Rashid Rubalcava MD Stage 3b chronic kidney disease (HCC) (Primary Dx); Viral hepatitis B, not otherwise specified 09/22/2024 Documentation Only [facility] [address] [place] [address] Mary August from Last 3 Months Immunizations [...] Visit [facility] [place], [address] [phone] Rashid Rubalcava MD [address] [place] [phone] Health Maintenance Due Date Last Done Comments [...] surface antibody (12/07/2024 11:05 AM EDT) Pathologist [facility] Hepatitis B Surface Ab <3.5(L) Immunity>1 0 mIU/mL [facility] Comment: Status of Immunity Anti-HBs Level Inconsistent with Immunity 0.0 - 10.0 Consistent with Immunity >10.0 Blood specimen (specimen) Venous blood / Unknown 12/07/2024 11:05 AM EDT 12/07/2024 Rashid Rubalcava MD LAB BLOOD ORDERABLES Final Re sult Performing Organization Address City/[facility]/ZIP Co de Phone Number [facility] [address], [address] [place] [phone] * Hepatitis B surface antigen (12/07/2024 11:05 AM EDT) Pathologist [facility] Hep B Surface Ag Negative Negative [facility] Blood specimen (specimen) Venous blood / Unknown 12/07/2024 11:05 AM EDT 12/07/2024 Rashid Rubalcava MD LAB BLOOD ORDERABLES Final Re sult [facility] [address], [address] [place] [phone] * (ABNORMAL) Microscopic Examination (12/07/2024 11:04 AM EDT) Pathologist [facility] WBC, Urine >30(A) 0 - 5 /hpf [facility] [place] RBC, Urine >30(A) 0 - 2 /hpf [facility] Squamous Epithelial, Urine 0-10 0 - 10 /hpf [facility] Casts None seen None seen /lpf [facility] Bacteria, Urine Few None seen/Few [facility] 12/07/2024 11:0 4 AM EDT 12/07/2024 Rashid Rubalcava MD LAB MICROBIOLOGY - GENERAL OR DERABLES Final Result Performing Organization Address City/[facility]/ZIP Co de Phone Number [facility] [address] [place] [address] * (ABNORMAL) Iron Panel (Fe, TIBC, TSAT) (12/07/2024 11:04 AM EDT) TIBC 306 250 - 450 ug/dL [facility] UIBC 263 111 - 343 ug/dL [facility] Iron 43 38 - 169 ug/dL [facility] Iron Saturation (TSat) 14(L) 15 - 55 % [facility] Blood specimen (specimen) Venous blood / Unknown 12/07/2024 11:04 AM EDT 12/07/2024 Rashid Rubalcava MD LAB BLOOD ORDERABLES Final Re sult [facility] [address] [place] [address] * (ABNORMAL) Urine Albumin / Creatinine Ratio (12/07/2024 11:04 AM EDT) Creatinine, Ur 109.9 Not Estab. mg/dL [facility] Albumin, Urine 253.8 Not Estab. ug/mL [facility] Albumin/Creatin ine Ratio 231(H) 0 - 29 mg/g creat [facility] Comment: Normal: 0 - 29 Moderately increased: 30 - 300 Severely increased: >300 Urine specimen (specimen) Urine specimen obtained by clean catch procedure / Unknown 12/07/2024 11:04 AM EDT 12/07/2024 Rashid Rubalcava MD LAB URINE ORDERABLES Final Re sult Performing Organization Address City/[facility]/ZIP Co de Phone Number [facility] [address] [place] [address] * (ABNORMAL) Vitamin D 25 Hydroxy (12/07/2024 11:04 AM EDT) Vitamin D, 25-OH, Total 29.4(L) 30.0 - 100.0 ng/mL [facility] Comment: Vitamin D deficiency has been defined by the [place] of [employer] and an Endocrine Society practice guideline as a level of serum 25-OH vitamin D less than 20 ng/mL (1,2). The Endocrine Society went on to further define vitamin D insufficiency as a level between 21 and 29 ng/mL (2). 1. IOM ([place] of Medicine). 2010. Dietary reference intakes for calcium and D. [place]: The National Academies Press. 2. Yolanda MF, Akilah HENRIQUEZ, Shanita HANDLEY, et al. Evaluation, treatment, and prevention of vitamin D deficiency: an Endocrine Society clinical practice guideline. JCEM. 2010; 96(7):1911-30. Blood specimen (specimen) Venous blood / Unknown 12/07/2024 11:04 AM EDT 12/07/2024 Rashid Rubalcava MD LAB BLOOD ORDERABLES Final Re sult [facility] [address] [place] [address] * (ABNORMAL) Urinalysis with microscopic (12/07/2024 11:04 AM EDT) Specific [facility], Urine 1.019 1.005 - 1.030 [facility] pH Urine 6.0 5.0 - 7.5 [facility] Color, Urine Yellow Yellow [facility] Appearance Urine Turbid(A) Clear [facility] [place] WBC Esterase Urine 2+(A) Negative [facility] Protein, Ur 2+(A) Negative/Tra ce [facility] Glucose, Ur 2+(A) Negative [facility] [phone] Ketones, Urine Negative Negative [facility] [place] Blood Urine 2+(A) Negative [facility] [phone] Bilirubin Urine Negative Negative [facility] [place] Urobilinogen Urine 0.2 0.2 - 1.0 mg/dL [facility] Nitrite, Urine Negative Negative [facility] Microscopic Examination See below: [facility] Comment:Microscopic was gladys cated and was performed. Urine specimen (specimen) Urine specimen obtained by clean catch procedure / Unknown 12/07/2024 11:04 AM EDT 12/07/2024 us Rashid Rubalcava MD LAB URINE ORDERABLES Final Re sult [facility] [address] [place] [address] * (ABNORMAL) CBC (12/07/2024 11:04 AM EDT) WBC 12.4(H) 3.4 - 10.8 x10E3/uL [facility] RBC 4.32 4.14 - 5.80 x10E6/uL [facility] Hemoglobin 11.5(L) 13.0 - 17.7 g/dL [facility] Hematocrit 37.8 37.5 - 51.0 % [facility] MCV 88 79 - 97 fL [facility] MCH 26.6 26.6 - 33.0 pg [facility] MCHC 30.4(L) 31.5 - 35.7 g/dL [facility] RDW 17.0(H) 11.6 - 15.4 % [facility] Platelets 301 150 - 450 x10E3/uL [facility] Blood specimen (specimen) Venous blood / Unknown 12/07/2024 11:04 AM EDT 12/07/2024 Rashid Rubalcava MD LAB BLOOD ORDERABLES Final Re sult [facility] [address] [place] [address] * Phosphorus (12/07/2024 11:04 AM EDT) Phosphorus 4.0 2.8 - 4.1 mg/dL [facility] Blood specimen (specimen) Venous blood / Unknown 12/07/2024 11:04 AM EDT 12/07/2024 Rashid Rubalacva MD LAB BLOOD ORDERABLES Final Re sult [facility] [address] [place] [address] * PTH, Intact (12/07/2024 11:04 AM EDT) PTH 53 15 - 65 pg/mL [facility] Blood specimen (specimen) Venous blood / Unknown 12/07/2024 11:04 AM EDT 12/07/2024 Rashid Rubalcava MD LAB BLOOD ORDERABLES Final Re sult [facility] [address] [place] [address] * (ABNORMAL) Magnesium (12/07/2024 11:04 AM EDT) Magnesium 2.4(H) 1.6 - 2.3 mg/dL [facility] Blood specimen (specimen) Venous blood / Unknown 12/07/2024 11:04 AM EDT 12/07/2024 us Rashid Rubalcava MD LAB BLOOD ORDERABLES Final Re sult Performing Organization Address City/[facility]/ZIP Co de Phone Number [facility] [address] [place] [address] * Ferritin (12/07/2024 11:04 AM EDT) Ferritin 88 30 - 400 ng/mL [facility] Blood specimen (specimen) Venous blood / Unknown 12/07/2024 11:04 AM EDT 12/07/2024 us Rashid Rubalcava MD LAB BLOOD ORDERABLES Final Re sult Performing Organization Address City/[facility] Co de Phone Number [facility] [address] [place] [address] * Albumin (12/07/2024 11:04 AM EDT) Albumin 4.1 3.7 - 4.7 g/dL [facility] Blood specimen (specimen) Venous blood / Unknown 12/07/2024 11:04 AM EDT 12/07/2024 Rashid Rubalcava MD LAB BLOOD ORDERABLES Final Re sult [facility] [address] [place] [address] * (ABNORMAL) Basic Metabolic Panel (12/07/2024 11:04 AM EDT) Glucose 172(H) 70 - 99 mg/dL [facility] BUN 60(H) 8 - 27 mg/dL [facility] Creatinine 2.70(H) 0.76 - 1.27 mg/dL [facility] eGFR CKD-EPI CR 2020 23(L) >59 mL/min/1.7 3 [facility] BUN/Creatinine Ratio 22 10 - 24 [facility] Sodium 134 134 - 144 mmol/L [facility] Potassium 5.1 3.5 - 5.2 mmol/L [facility] Chloride 99 96 - 106 mmol/L [facility] Bicarbonate (CO2) 18(L) 20 - 29 mmol/L [facility] Calcium 8.6 8.6 - 10.2 mg/dL [facility] Blood specimen (specimen) Venous blood / Unknown 12/07/2024 11:04 AM EDT 12/07/2024 Rashid Rubalcava MD LAB BLOOD ORDERABLES Final Re sult [facility] [address] [place] [address] * (ABNORMAL) Hemoglobin A1c (07/23/2022 2:06 PM EST) Hemoglobin A1C 6.9(H) (4.0-5.6) % [facility] Comment: MONITORING: In known diabetic patients, hemoglobin A1c targets should be discussed with health care provider. DIAGNOSTIC USE: The [place] Diabetes Association (ADA) and the World Health [...] Supplement 1 Testing performed or reported by [facility], a Service of [facility], [address] [place] [address] Payal Smith MD, R&D Lab Technician [facility]# [id number] Blood specimen (specimen) Venous blood / Unknown 07/23/2022 2:06 PM EST 07/23/2022 2:07 PM EST us Eunice MURRAY LAB BLOOD ORDERABLES Final Res ult [facility] from Last 3 Months or Most Recently Relevant to Health Maintenance Insurance [employer] Medicare Care Teams Biological Technical Officer Relationship Specialty Start Date End Date Ismael Brown MD [address] [place] [phone] PCP - General Internal Medicine 01/29/23
--- OUTSIDE RECORDS SUMMARY | 2024-12-21 07:56 | XMS_ITS | Data Portability ---
Author Organization [place] - [facility] Address [address] [place] [address] Assessment No assessment recorded. Plan of Treatment [...] OC-DOT PHYSICAL completed ARMAAN FREITAS TERRI - [facility] 08/22/2022 14:40:40 Imaging Results None recorded. [...] SNOMED-CT Code Diagnosis ICD10 Code Diagnosis Note [id number] [address] [place] [address] 08/03/2017 09:51:25 08/03/2017 11:59:17 [id number] [facility] [address] [place] [address] 03/01/2022 09:49:31 03/01/2022 12:05:59 [id number] [address] [place] [address] 01/25/2018 13:06:15 01/25/2018 14:12:42 [id number] [address] [place] [address] 07/25/2018 12:40:42 07/25/2018 15:26:33 [id number] [address] [place] [address] 01/07/2017 09:43:52 01/07/2017 11:03:29 [id number] Jasmine Boswell MD [address] [place] [address] 08/22/2022 13:38:23 08/22/2022 16:41:19 Material Checker license medical examination [id number] Z02.4 Physical examination [phone] Z02.4 Health Concerns Section Related Observation LastModified by Organization Detai ls LastModified Time None Recorded Concern Status LastModified by Organization Details LastModified Time None Recorded Advance Directives Directive None Recorded Payers Insurance Date Sequence Insurance Name Policy Number Policy Nazario Covered Member ID Nazario Member ID Guarantor Name 08/22/2022 OC-ESCREEN Wojciech Flores [id number] Wojciech Flores 08/22/2022 DO NOT USE Wojciech Flores OC-PAY AT TIME OF SERVICE OC-PAY AT TIME OF SERVICE Wojciech Flores
--- OUTSIDE RECORDS SUMMARY | 2024-12-21 07:56 | XMS_ITS | Clinical Summary ---
Author Organization [facility] Address [address] [place] [address] Phone Care Team Providers Care Tube Tester Name Role Phone Neeru Garcia MD Primary Care Provider Social History Tobacco Use Types Packs/Day Years Used Date Smoking Tobacco: Never Assessed Education Answer Date Recorded Are you interested in more education? Not on savi e 09/28/2022 Are you concerned about learning? Not on file 09/28/2022 No 09/28/2022 No 09/28/2022 Digital Access Answer Date Recorded No 10/30/2022 No 10/30/2022 Reliable internet access at home? Not on file 10/30/2022 Device with a working camera? Not on file Sex and Gender Information Value Date Recorded Sex Assigned at Not on file Legal Sex Male 3:28 PM EDT Gender Identity Not on file Sexual Orientation Not on file Last Filed Vital Signs Vital Sign Reading Time Taken Comments Blood Pressure 130/74 06/06/2020 11:34 AM EST Pulse - - Temperature - - Respiratory Rate - - Oxygen Saturation 97% 06/06/2020 11:00 AM EST Inhaled Oxygen Concentration - - Weight - - Height - - Body Mass Index - - Plan of Treatment Not on file Medical Devices Not on file Insurance [employer] PPO MEDICARE REPLACEMENT A[employer] PPO MEDICARE REPLACEMENT AETNA PPO MEDICARE REPLACEMENT AETNA PPO MEDIC[facility] AETNA O MEDICARE REPLACEMENT AETNA O MEDICARE [facility] RE[facility] AETNA O MEDICARE REPLACEMENT Care Teams Tube Tester Relationship Specialty Start Date End Date Neeru Garcia MD [address] [place] [phone] PCP - General 05/16/20 Additional Source Comments The information contained in this document represents components of the legal health record. It is not the complete legal health record.[facility]
[2024-12-21 10:48] LABS: Alanine Aminotransferase 9 U/L (0-40); Anion Gap 13 (12-20); Aspartate Amino Transferase 28 U/L (5-37); Blood Urea Nitrogen 59 mg/dL (9-16); Calcium 8.5 mg/dL (8.4-10.2); Carbon Dioxide 25 mmol/L (22-29); Chloride 106 mmol/L (96-108); Cholesterol 87 mg/dL (<200); Estimated Glomerular Filt Rate 23; HDL Cholesterol 20 mg/dL (>40); Potassium 5.1 mmol/L (3.3-5.1); Sodium 139 mmol/L (135-145); Triglycerides 146 mg/dL (<150); Uric Acid 6.9 mg/dL (3.4-7.0)
[2024-12-21 10:51] LABS: Free T4 (Free Thyroxine) 1.44 ng/dL (0.71-1.85); Thyroid Stimulating Hormone 0.64 uIU/mL (0.32-4.0)
== END 2024-12-21 07:53 | disposition home or self-care (01) ==
LOC: HO.HMGCLDS 07:52
PROVIDERS: PCP Internal Medicine; Visit Provider Internal Medicine
DX: Z00.01 Encounter for general adult medical examination with abnormal findings (principal); I35.0 Nonrheumatic aortic (valve) stenosis; E78.00 Pure hypercholesterolemia, unspecified; E11.9 Type 2 diabetes mellitus without complications; E03.9 Hypothyroidism, unspecified; N18.30 Chronic kidney disease, stage 3 unspecified; G47.33 Obstructive sleep apnea (adult) (pediatric); I10 Essential (primary) hypertension; Z71.89 Other specified counseling
CPT/HCPCS: 36415; 80048; 80061; 84439; 84443; 84450; 84460; 84550